=== PATIENT | male | born 1950 | race Caucasian/White ===

== ENCOUNTER 2024-12-31 18:55 | Inpatient (IN) | payer BC, OTHER ==
[~2024-12-31] VITALS: Ht 185.4 cm; Wt 118.8 kg
--- NOTE | 2024-12-31 19:17 | ECG ---
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
[2024-12-31 19:26] LABS: Nucleated Red Blood Cells % 0.1 %
[2024-12-31 19:27] LABS: Hemoglobin 19.2 g/dL (13.5-17.5); Mean Corpuscular Hemoglobin 28.7 pg (28.0-32.0); Mean Corpuscular Volume 86.1 fL (80.0-100.0)
[2024-12-31 19:29] LABS: Chloride 107 mmol/L (98-107); Potassium 4.5 mmol/L (3.5-5.1); Sodium 142 mmol/L (136-145)
[2024-12-31 19:30] LABS: Anion Gap 10 (5-15); Calcium 9.2 mg/dL (8.7-10.4); Carbon Dioxide 25 mmol/L (20-31)
[2024-12-31 19:33] LABS: Hematocrit 57.7 % (41.0-53.0)
[2024-12-31 19:35] LABS: BUN/Creatinine Ratio 13.4 (10.0-20.0); Blood Urea Nitrogen 20 mg/dL (9-23)
[2024-12-31 19:36] LABS: Glucose 112 mg/dL (74-106)
[2024-12-31 19:39] VITALS: PULSE 114; RESP 16; O2SAT 95
--- NOTE | 2024-12-31 19:45 | ECG ---
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
[2024-12-31] MEDS: SODIUM CHLORIDE 0.9% 500 ML IV ONE (19:59)
--- NOTE | 2024-12-31 20:34 | ED.PDOC ---
History of Present Illness HPI Comments [age] year old male is brought in by ambulance from private residence for chief complaint of shortness a breath status post AICD discharge. Patient endorses on his AICD going off, suddenly and unprovoked, and shocking him 3 times and developing shortness of breath soon afterwards, while hanging out at a friend's place. Significant history for AFib, CHF, CVA, cervical radiculopathy, and AICD placement. No prior history of his device going off in the past. No further pertinent history reported. Patient denies having any chest pain, nausea, vomiting, fever, chills, further associated symptoms. Per EMS report, patient was noted to have a heart rate between the 150-180 range; blood pressure and perforation were reported to have been fine. REVIEW OF SYSTEMS: General: No fever, no chills, or fatigue HEENT: No sore throat, no earache, no congestion, no neck pain. Cardiac: No chest pain. No palpitations. Lungs: Shortness of breath, no cough. GI: No nausea, no vomiting, no diarrhea, no constipation, no abdominal pain : No dysuria, frequency, or urgency. No hematuria. Musculoskeletal: No joint pain , no joint swelling, no extremity edema. Skin: No rash, no itching. Neuro: No headache, no dizziness, no weakness PHYSICAL EXAM: General: Awake, alert and oriented. No acute distress. Skin: Skin in warm, dry and intact. Appropriate color for ethnicity. HEENT: The head is normocephalic and atraumatic. Conjunctivae are clear without exudates or hemorrhage. Sclera is non-icteric. EOM are intact. No signs of nystagmus. Eyelids are normal in appearance without swelling or lesions. Oral mucosa is pink and moist Neck: The neck is supple with normal range of motion. No JVD. Cardiac: Rapid heart rate; irregularly, irregular rhythm. No murmurs, gallops, or rubs are auscultated. Respiratory: No signs of respiratory distress. Lung sounds are clear in all lobes bilaterally without rales, rhonchi, or wheezes. Abdominal: Abdomen is soft, non-tender without distention, guarding or rigidity. Bowel sounds are present and normoactive in all four quadrants. Extremities: Upper and lower extremities are atraumatic in appearance without deformity or edema. Neurological: The patient is awake, alert and oriented to person, place, and time with normal speech. Speech is clear. There is no facial asymmetry. Psychiatric: Appropriate mood and affect. Good judgement and insight. Chief Complaint: Chest Pain Time Seen by MD: 19:00 Primary Care Provider: JUANITA Curry Notes: Nurses Notes, [place]t [place]ime Drawer Notes, Medications, Allergies Allergies: Coded Allergies: NO KNOWN ALLERGIES (Unverified , 11/27/13) Information Source: Patient, Emergency Med Personnel Mode of Arrival: Ambulatory Severity: Moderate Timing: Hours Duration: Since onset Prehospital treatment: 12 Lead EKG, Audit Tech Past Medical History PAST MEDICAL HISTORY: AFIB, CHF, CVA (Chronic lacunar CVA), Denies Past Medical History (Other): Cervical radiculopathy Surgical History (Other): AICD placement Right shoulder surgery Family History Family History: Unobtainable Social History Smoker: Non-Smoker Alcohol: Denies ETOH Use Drugs: Denies Drug Use Lives In: Home Was a procedure done? Was a procedure done?: No EKG EKG #1: Pulse Rate (adult): 151 [place]: Normal Cardiac Rhythm: Afib Block: None Hypertrophy: None ST: Normal Comments No STEMI EKG #2: Pulse Rate (adult): 101 [place]: Normal Cardiac Rhythm: Afib Block: None Hypertrophy: None ST: Normal Comments No STEMI Differential Dx Considerations may include: Differential diagnoses considered includebut arenot limited to acute Bro nchitis, Asthma, COPD, Pneumothorax, PE, CHF, Pulmonary HTN, Anemia, CO Poisoning, Methemoglobinemia, Hyperventilation, Metabolic Acidosis, Pulmonary Edema, Pneumonia, ACS, Pericardial Tamponade, Anxiety, arrhythmia, other X-Ray, Labs, Meds, VS Vital Signs Date Time Temp Pulse Resp B/P (MAP) Pulse Ox O2 Delivery O2 Flow Rate FiO2 12/31/24 21:00 98 21 129/84 (99) 95 12/31/24 20:46 101 12/31/24 20:00 109 17 109/68 (82) 95 12/31/24 19:44 101 12/31/24 19:42 95 Nasal Cannula* 2 28 12/31/24 19:39 114 16 95 Nasal Cannula* 2 28 12/31/24 19:37 98.5 114 17 121/61 (81) 94 98.5 12/31/24 18:58 151 12/31/24 18:55 98.0 161 24 128/76 98 98.0 Lab Test 12/31/24 20:13 12/31/24 19:08 Range/Units Troponin I High Sensitivity 3163 *H 652 *H </=54 ng/L White Blood Count 11.6 H 4.4-10.8 10^3/uL Red Blood Count 6.70 H 4.5-5.90 10^6/uL Hemoglobin 19.2 H 13.5-17.5 g/dL Hematocrit 57.7 H 41.0-53.0 % Mean Corpuscular Volume 86.1 80.0-100.0 fL Mean Corpuscular Hemoglobin 28.7 28.0-32.0 pg Mean Corpuscular Hemoglobin Concent 33.3 32.0-36.0 g/dL Red Cell Distribution Width 17.8 H 11.8-14.3 % Platelet Count 200 140-450 10^3/uL Mean Platelet Volume 9.7 6.9-10.8 fL Neutrophils (%) (Auto) 73.0 37.0-80.0 % Lymphocytes (%) (Auto) 16.9 10.0-50.0 % Monocytes (%) (Auto) 8.3 0.0-12.0 % Eosinophils (%) (Auto) 1.0 0.0-7.0 % Basophils (%) (Auto) 0.8 0.0-2.0 % Neutrophils # (Auto) 8.4 1.6-8.6 10 ^3/uL Lymphocytes # (Auto) 2.0 0.4-5.4 10 ^3/uL Monocytes # (Auto) 1.0 0-1.3 10 ^3/uL Eosinophils # (Auto) 0.1 0-0.8 10 ^3/uL Basophils # (Auto) 0.1 0-0.2 10 ^3/uL Nucleated Red Blood Cells 0.1 % Sodium Level 142 136-145 mmol/L Potassium Level 4.5 3.5-5.1 mmol/L Chloride Level 107 98-107 mmol/L Carbon Dioxide Level 25 20-31 mmol/L Anion Gap 10 5-15 Blood Urea Nitrogen 20 9-23 mg/dL Creatinine 1.49 H 0.700-1.30 mg/dL Glomerular Filtration Rate Calc 49 >90 mL/min BUN/Creatinine Ratio 13.4 10.0-20.0 Serum Glucose 112 H 74-106 mg/dL Calcium Level 9.2 8.7-10.4 mg/dL B-Type Natriuretic Peptide 572.86 0-100 pg/mL Thyroid Stimulating Hormone (TSH) 2.83 0.55-4.78 uIU/mL Current Medications Medications (Trade) Dose Ordered Sig/Darius Route Start Time Stop Time Status Last Admin Sodium Chloride 500 ml @ 500 mls/hr Q1H ONCE IV 12/31/24 19:00 12/31/24 19:59 DC 12/31/24 19:59 Aspirin 162 mg ONCE ONCE PO 12/31/24 21:30 12/31/24 21:44 DC 12/31/24 22:12 Time of 1ST Reevaluation: 19:30 Reevaluation 1ST: Unchanged Patient Education/Counseling: Other (Need for admission) Family Education/Counseling: No Family Present SEPSIS Sepsis Screen Date sepsis recognized/suspect: Dec 31, 2024 Time Sepsis recognized/suspect: 1940 Recent Procedure: No On Antibiotic Therapy: No Respiratory Rate >20: No Heart Rate >90: No Temp<36 C (96.8 F) or >38.3 C: No SBP <90 or MAP <65 mmHG: No New Acute Mental Status Change: No Is the patient on CPAP, BIPAP,: No Physician Orders Chest Xray 1 View (12/31/24 19:00) Vital Signs Q1HR (12/31/24 19:00) Electrocardigram (12/31/24 22:00) Titrate Oxygen (12/31/24 19:01) Oxygen (12/31/24 ) Continous Pulse Oximetry (12/31/24 19:01) Saline Lock (12/31/24 19:01) Audit Tech (12/31/24 ) Assess Pacemaker Function (12/31/24 20:18) * Cardiology Consult (12/31/24:29) Aspirin Tablet (01/01/25 10:00) Atorvastatin (Lipitor) (12/31/24 22:00) Platelet Monitoring (12/31/24 21:29) Heparin Per Standardized Proce (12/31/24 21:29) Discontinue All Im Injections (12/31/24 21:29) Stat Ekg For Chest Pain (12/31/24 21:29) Vital Signs Date Time Temp Pulse Resp B/P (MAP) Pulse Ox O2 Delivery O2 Flow Rate FiO2 12/31/24 21:00 98 21 129/84 (99) 95 12/31/24 20:46 101 12/31/24 20:00 109 17 109/68 (82) 95 12/31/24 19:44 101 12/31/24 19:42 95 Nasal Cannula* 2 28 12/31/24 19:39 114 16 95 Nasal Cannula* 2 28 12/31/24 19:37 98.5 114 17 121/61 (81) 94 98.5 12/31/24 18:58 151 12/31/24 18:55 98.0 161 24 128/76 98 98.0 Laboratory Tests Test 12/31/24 19:08 White Blood Count 11.6 10^3/uL (4.4-10.8) H Medications Medications Dose Ordered Sig/Darius Route Start Time Stop Time Status Last Admin Dose Admin Aspirin 162 mg ONCE ONCE PO 12/31/24 21:30 12/31/24 21:44 DC 12/31/24 22:12 Sodium Chloride 500 ml @ 500 mls/hr Q1H ONCE IV 12/31/24 19:00 12/31/24 19:59 DC 12/31/24 19:59 Departure 1 Departure Time of Disposition: 04:29 Impression: Primary Impression: NSTEMI (non-ST elevated myocardial infarction) Additional Impressions: Atrial fibrillation Defibrillator discharge Disposition: ADMITTED INPATIENT Condition: Stable Comments MDM: 74-year-old male presents to the emergency department with two episodes of defibrillator discharge Initial evaluation included thorough history, physical examination and appropriate diagnostic testing. Based on the clinical presentation and diagnostic findings, the patient appears to have atrial fibrillation with RVR, rate improved spontaneously. Increasing troponins NSTEMI versus myocardial injury from defibrillator discharge. Patient initiated on heparin bolus and drip given cardiac history. Given the complexity of the case and need for further management patient is being admitted to the hospitalist service for further monitoring, treatment and evaluation. Risks, benefits and alternatives of admission and proposed interventions were discussed with the patient. Patient is in agreement with the plan. Extensive evaluation was performed in attempt to identify or rule out: (See differential diagnosis section) The following tests were ordered, and results were reviewed by me and discussed with patient: (See diagnostic results section) The following test were independently interpreted by me: N/A I reviewed and agreed with the following test results read by other providers: Chest x-ray I reviewed the following notes from the pt's past medical encounters: November 27, 2013 and December 18, 2013 encounters for palpitations and acute CVA with left arm weakness, respectively. Additional information was gathered from interviewing the following independent historians: EMS personnel Discussion of management or test interpretation with external physician/other qualified health healthcare marketer: N/A Addressed an acute or chronic illness that poses a threat to life or bodily function: NSTEMI Decision regarding hospitalization or escalation of hospital level of care: Risk and benefits of admission for further treatment of patient's condition was considered. Due to patient's current clinical condition, high risk of decline and poor outcome if discharged and need for further inpatient management and monitoring, patient will be admitted to the hospital. Drug therapy requiring intensive monitoring for toxicity: N/A Parenteral controlled substances: N/A Decision regarding elective major surgery with identified patient or procedure risk factors: N/A Decision regarding emergency major surgery: N/A Decision not to resuscitate or to de-escalate care because of poor prognosis: N/A Diagnosis or treatment significantly limited by social determinants of health: N/A Critical Care Note Critical Care Time?: No Stability Stability form required: No Heart Score Heart Score: Heart Score Response (Comments) Value History Moderate Suspicious 1 EKG Repolarization Disturb 1 Age >65 2 Risk Factors >3 or Hx ASHD 2 Troponin >3 x's Normal limit 2 Total 8 I personally scribed for PAULO DALLAS MD ([email or web address]) on 12/31/24 at 20:34. Electronically submitted by Jamari Harrell ([email or web address]). I personally scribed for PAULO DALLAS MD ([email or web address]) on 12/31/24 at 20:46. Electronically submitted by Jamari Harrell ([email or web address]). PAULO DALLAS MD Dec 31, 2024 20:34
--- NOTE | 2024-12-31 21:22 | DVH ---
CHEST RADIOGRAPH Indication: cp Technique: Single frontal view of the chest was obtained Comparison: None FINDINGS: Lines and Tubes: Left chest pacer Lungs: No focal consolidation. Mild pulmonary vascular congestion. Pleura: No effusion. No pneumothorax. Cardiomediastinal contours: Mild cardiomegaly Bones: No acute osseous abnormality. IMPRESSION: 1. Mild pulmonary vascular congestion and mild cardiomegaly. No focal consolidation
--- NOTE | 2024-12-31 21:39 | DVHHP2 ---
History of Present Illness Reason for Visit: Shortness of breath History of Present Illness 74-year-old male presents for evaluation of shortness for breath. Patient reports feeling his AICD set off 3 times today. He states that subsequently he developed shortness for breath. Denies dizziness or chest pain. No other acute complaints reported. Past Medical History AFib, CHF, CVA Past Surgical History AICD Family History Noncontributory Smoke: No ALCOHOL: none Drugs: None Lives: with Family Review of Systems Review of Systems Review of systems are currently negative otherwise addressed in HPI. Allergies: Coded Allergies: NO KNOWN ALLERGIES (Unverified , 11/27/13) Medications Current Medications Medications Dose Ordered Sig/Darius Route Start Time Stop Time Status Last Admin Dose Admin Heparin Sodium/ Dextrose 250 ml @ 0 mls/hr Q0M IV 12/31/24 21:00 UNV Aspirin 162 mg DAILY PO 01/01/25 10:00 UNV Atorvastatin Calcium 20 mg HS PO 12/31/24 22:00 UNV Ondansetron HCl 4 mg Q4HP PRN IV 12/31/24 21:45 UNV Nitroglycerin 0.4 mg Q5MINP PRN SL 12/31/24 21:45 UNV Morphine Sulfate 2 mg Q30M PRN IV 12/31/24 21:45 UNV Exam Vital Signs Vital Signs Date Time Temp Pulse Resp B/P (MAP) Pulse Ox O2 Delivery O2 Flow Rate FiO2 12/31/24 20:46 101 12/31/24 20:00 17 109/68 (82) 95 12/31/24 19:42 Nasal Cannula* 2 28 12/31/24 19:37 98.5 98.5 Exam Gen: 74 year old male in mild distress Skin: Warm, dry, normal color and texture, no rash. HEENT: Normocephalic atraumatic, mucous membranes moist and pink. Neck: Cervical and supraclavicular nodes normal without enlargement, trachea is midline, thyroid gland is normal without masses. Pulmonary: Clear to auscultation and percussion bilaterally. Cardiac: Regular rate and rhythm. No murmur Abdomen: Soft, nontender, nondistended, bowel sounds present all 4 quadrants, no guarding, no rigidity, no organomegaly. Extremities: No cyanosis, clubbing, no edema Neuro: Cranial nerves II through XII grossly intact, normal affect and speech, no focal motor deficits. Labs/Xrays ORDERING PHYSICIAN: PAULO DALLAS MD PROCEDURE(s): CXR1 - CHEST XRAY 1 VIEW REASON: cp ORDER NUMBER(s): [id number], ACCESSION NUMBER(s): [id number] CHEST RADIOGRAPH Indication: cp Technique: Single frontal view of the chest was obtained Comparison: None FINDINGS: Lines and Tubes: Left chest pacer Lungs: No focal consolidation. Mild pulmonary vascular congestion. Pleura: No effusion. No pneumothorax. Cardiomediastinal contours: Mild cardiomegaly Bones: No acute osseous abnormality. IMPRESSION: 1. Mild pulmonary vascular congestion and mild cardiomegaly. No focal cons olidation Labs Test 12/31/24 20:13 12/31/24 19:08 Range/Units Troponin I High Sensitivity 3163 *H </=54 ng/L White Blood Count 11.6 H 4.4-10.8 10^3/uL Red Blood Count 6.70 H 4.5-5.90 10^6/uL Hemoglobin 19.2 H 13.5-17.5 g/dL Hematocrit 57.7 H 41.0-53.0 % Mean Corpuscular Volume 86.1 80.0-100.0 fL Mean Corpuscular Hemoglobin 28.7 28.0-32.0 pg Mean Corpuscular Hemoglobin Concent 33.3 32.0-36.0 g/dL Red Cell Distribution Width 17.8 H 11.8-14.3 % Platelet Count 200 140-450 10^3/uL Mean Platelet Volume 9.7 6.9-10.8 fL Neutrophils (%) (Auto) 73.0 37.0-80.0 % Lymphocytes (%) (Auto) 16.9 10.0-50.0 % Monocytes (%) (Auto) 8.3 0.0-12.0 % Eosinophils (%) (Auto) 1.0 0.0-7.0 % Basophils (%) (Auto) 0.8 0.0-2.0 % Neutrophils # (Auto) 8.4 1.6-8.6 10 ^3/uL Lymphocytes # (Auto) 2.0 0.4-5.4 10 ^3/uL Monocytes # (Auto) 1.0 0-1.3 10 ^3/uL Eosinophils # (Auto) 0.1 0-0.8 10 ^3/uL Basophils # (Auto) 0.1 0-0.2 10 ^3/uL Nucleated Red Blood Cells 0.1 % Sodium Level 142 136-145 mmol/L Potassium Level 4.5 3.5-5.1 mmol/L Chloride Level 107 98-107 mmol/L Carbon Dioxide Level 25 20-31 mmol/L Anion Gap 10 5-15 Blood Urea Nitrogen 20 9-23 mg/dL Creatinine 1.49 H 0.700-1.30 mg/dL Glomerular Filtration Rate Calc 49 >90 mL/min BUN/Creatinine Ratio 13.4 10.0-20.0 Serum Glucose 112 H 74-106 mg/dL Calcium Level 9.2 8.7-10.4 mg/dL B-Type Natriuretic Peptide 572.86 0-100 pg/mL SEPSIS Sepsis Screen Date sepsis recognized/suspect: Dec 31, 2024 Time Sepsis recognized/suspect: 1940 Recent Procedure: No On Antibiotic Therapy: No Respiratory Rate >20: No Heart Rate >90: No Temp<36 C (96.8 F) or >38.3 C: No SBP <90 or MAP <65 mmHG: No New Acute Mental Status Change: No Is the patient on CPAP, BIPAP,: No Physician Orders Chest Xray 1 View (12/31/24 19:00) Vital Signs Q1HR (12/31/24 19:00) Electrocardigram (12/31/24 22:00) Troponin-I Hs (12/31/24 22:00) Titrate Oxygen (12/31/24 19:01) Oxygen (12/31/24 ) Continous Pulse Oximetry (12/31/24 19:01) Saline Lock (12/31/24 19:01) Climbing Guide (12/31/24 ) Assess Pacemaker Function (12/31/24 20:18) Prothrombin Time W/ Inr (12/31/24 20:59) Heparin Sodium (Porcine) (12/31/24 21:00) Heparin Drip/D5w 100units/Ml (12/31/24 21:00) Thyroid Stimulating Hormone (12/31/24 21:29) * Cardiology Consult (12/31/24 21:29) Aspirin Tablet (01/01/25 10:00) Aspirin Tablet (12/31/24 21:30) Atorvastatin (Lipitor) (12/31/24 22:00) Platelet Monitoring (12/31/24:) Heparin Per Standardized Proce (12/31/24:29) Discontinue All Im Injections (12/31/24:29) Stat Ekg For Chest Pain (12/31/24:) Admit (12/31/24:) Ondansetron Hcl (Zofran) (12/31/24 21:45) Complete Blood Count (01/01/25 04:00) Comprehensive Metabolic Panel (01/01/25 04:00) Echo 2d Mode Cardiac Dop (12/31/24:) Condition: Fair (12/31/24:) Bedrest With Bathroom Privileg (12/31/24:) Nitroglycerin Sublingual (Ntrostat Subli (12/31/24 21:45) Morphine Sulfate Injection (12/31/24 21:45) Notify Of Changes From Base (12/31/24:) Clerical Administrator For 24 Hours (12/31/24:) Emergency Dysrhythmia Protocol (12/31/24:) Rhythm Strips Once Every Shift (12/31/24:) Oxygen By Nasal Cannula (12/31/24:) Npo Except For Medications (12/31/24:) Npo (Nothing By Mouth) Diet (12/31/24 Breakfast) Vital Signs Date Time Temp Pulse Resp B/P (MAP) Pulse Ox O2 Delivery O2 Flow Rate FiO2 12/31/24 20:46 101 12/31/24 20:00 109 17 109/68 (82) 95 12/31/24 19:44 101 12/31/24 19:42 95 Nasal Cannula* 2 28 12/31/24 19:39 114 16 95 Nasal Cannula* 2 28 12/31/24 19:37 98.5 114 17 121/61 (81) 94 98.5 12/31/24 18:58 151 12/31/24 18:55 98.0 161 24 128/76 98 98.0 Laboratory Tests Test 12/31/24 19:08 White Blood Count 11.6 10^3/uL (4.4-10.8) H Medications Medications Dose Ordered Sig/Darius Route Start Time Stop Time Status Last Admin Dose Admin Sodium Chloride 500 ml @ 500 mls/hr Q1H ONCE IV 12/31/24 19:00 12/31/24 19:59 DC 12/31/24 19:59 500 MLS/HR Assessment/Plan Assessment/Plan Assessment NSTEMI AFib with RVR Acute kidney injury Plan Admit the patient to telemetry to the hospitalist Continue heparin drip NPO except medications Cardiology consult Continue treatment per orders. Plan discussed with: Patient My Orders Orders - DASHAWN MAINCNP Procedure Category Date Status Time Thyroid Stimulating LAB 12/31/24 Logged Hormone 21:29 * Cardiology Consult CONS 12/31/24 Transmitted 21:29 Aspirin Tablet PHA 01/01/25 Logged 10:00 Aspirin Tablet PHA 12/31/24 Logged 21:30 Atorvastatin (Lipitor) PHA 12/31/24 Logged 22:00 Platelet Monitoring MABEL 12/31/24 In Process 21:29 Heparin Per [facility] 12/31/24 In Process Standardized Proce 21:29 Discontinue All Im MABEL 12/31/24 In Process Injections 21:29 Stat Ekg For Chest [facility] 12/31/24 In Process Pain 21:29 Admit ADMIT 12/31/24 Transmitted 21:31 Ondansetron Hcl PHA 12/31/24 Logged (Zofran) 21:45 Complete Blood Count LAB 01/01/25 Verified 04:00 Comprehensive LAB 01/01/25 Verified Metabolic Panel 04:00 Echo 2d Mode Cardiac US 12/31/24 Transmitted DOP 21:31 Condition: Fair [facility] 12/31/24 In Process 21:31 Bedrest With Bathroom MABEL 12/31/24 In Process Privileg 21:31 Nitroglycerin PHA 12/31/24 Logged Sublingual (Ntrostat 21:45 Morphine Sulfate PHA 12/31/24 Logged Injection 21:45 Notify Of Changes [facility] 12/31/24 In Process From Base 21:31 Clerical Administrator For [facility] 12/31/24 In Process 24 Hours 21:31 Emergency Dysrhythmia MABEL 12/31/24 In Process Protocol 21:31 Rhythm Strips Once [facility] 12/31/24 In Process Every Shift 21:31 Oxygen By Nasal RT 12/31/24 Transmitted Cannula 21:31 Npo Except For MABEL 12/31/24 In Process Medications 21:31 Npo (Nothing By DIET 12/31/24 Transmitted Mouth) Diet Breakfast Date of Service: Dec 31, 2024 Billing Provider: DASHAWN MAIN Common Visit Codes: [id number] INP/OBS CARE (HIGH) DASHWAN MAIN Dec 31, 2024 21:38
[2024-12-31] MEDS ORDERED: MORPHINE SULFATE INJ 2 MG/ml SYRG IV PRN (21:45)
[2024-12-31] MEDS ORDERED: NITROGLYCERIN 0.4 MG SL TAB SL PRN (21:45)
[2024-12-31] MEDS ORDERED: ONDANSETRON HCL 4 MG/2 ML VIAL IV PRN (21:45)
[2024-12-31] MEDS: ATORVASTATIN 20 MG TAB PO SCH (22:13)
[2024-12-31 23:10] VITALS: BP 134/92; PULSE 114; PULSE 88; RESP 19; TEMP 98.2; O2SAT 96
[2024-12-31 23:30] LABS: INR 1.11 (0.9-1.15); Partial Thromboplastin Time 30.2 SEC (24.5-34.5); Prothrombin Time 11.6 sec (9.3-11.8)
[2025-01-01] VITALS (16 sets, daily range): BP systolic 123–153; BP diastolic 74–116; PULSE 66–94; RESP 13–21; TEMP 98–98.8; O2SAT 91–98
[2025-01-01] MEDS: HEPARIN DRIP/D5W 100UNITS/ML 250 ML IV SCH (00:37)
[2025-01-01] MEDS: HEPARIN SODIUM (PORCINE) 5000 UNITS/ML 1ML VIAL IV ONE ×2 (00:38→00:54)
[2025-01-01 06:32] LABS: Hematocrit 55.6 % (41.0-53.0); Hemoglobin 19.0 g/dL (13.5-17.5); Mean Corpuscular Hemoglobin 29.3 pg (28.0-32.0); Mean Corpuscular Volume 85.8 fL (80.0-100.0); Nucleated Red Blood Cells % 0.2 %
[2025-01-01 06:40] LABS: INR 1.12 (0.9-1.15); Partial Thromboplastin Time 51.5 SEC (24.5-34.5); Prothrombin Time 11.7 sec (9.3-11.8)
[2025-01-01 06:44] LABS: Alanine Aminotransferase 20 U/L (7-40); Albumin 4.4 g/dL (3.2-4.8); Alkaline Phosphatase 56 U/L (46-116); Anion Gap 9 (5-15); BUN/Creatinine Ratio 10.6 (10.0-20.0); Blood Urea Nitrogen 14 mg/dL (9-23); Calcium 9.1 mg/dL (8.7-10.4); Carbon Dioxide 28 mmol/L (20-31); Glucose 104 mg/dL (74-106); Potassium 4.4 mmol/L (3.5-5.1); Sodium 144 mmol/L (136-145); Total Protein 6.5 g/dL (5.7-8.2)
[2025-01-01 06:45] LABS: Bilirubin, Total 1.4 mg/dL (0.2-1.0); Chloride 107 mmol/L (98-107)
--- NOTE | 2025-01-01 08:00 | ECG ---
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
[2025-01-01] MEDS ORDERED: SACU1TAB PO (09:21)
[2025-01-01] MEDS ORDERED: FURO1TAB31 PO (09:21)
[2025-01-01] MEDS ORDERED: APIX5TAB PO (09:21)
[2025-01-01] MEDS ORDERED: SPIR25TA8 PO (09:21)
[2025-01-01] MEDS ORDERED: METO-289 PO (09:21)
--- NOTE | 2025-01-01 12:39 | DVHINCON2 ---
Date Seen: Jan 01, 2025 Referring Physician KOURTNEY Delvalle Reason for Consultation NSTEMI History of Present Illness This is a 74-year-old man who presented to the emergency room via EMS with a chief complaint of ICD discharge x3. The patient reports he had an uneventful day yesterday without any symptoms when he was suddenly shocked x3 times by his AICD which prompting him to call 911. Upon arrival to the emergency room he underwent multiple 12 lead electrocardiogram revealing an atrial fibrillation rhythm with rapid ventricular rate up to the 150s bpm and associated T-wave inversion to anterior leads. Serial troponin levels have trended up to the 3,000 ng/L. Denies any cardiac symptoms. Follows up in the outpatient setting with EP Dr. Mirza with latest appointment completed last month. The patient denies undergoing a cardiac catheterization and coronary angiogram in the past. Significant medical history includes congestive heart failure with decreased LV function, unspecified atrial fibrillation on Eliquis therapy, [employer] single lead ICD implanted on 24-Oct-2024, hypertension, dyslipidemia, cervical radiculopathy, and obesity. Past Medical History Past medical history reviewed. No other significant than mentioned above. Past Surgical History Single lead ICD implantation ([employer]), Family History: Cancer G8 MOTHER Family history: Cardiovascular disease G8 FATHER Family History Family history reviewed. Not significant for cardiovascular disease. Social History Denies the use of illicit drugs, alcohol, or tobacco use. Allergies: Coded Allergies: NO KNOWN ALLERGIES (Unverified , 11/27/13) Home Meds Reported Medications Spironolactone (Spironolactone) 25 Mg Tab, 12.5 MG PO DAILY, TAB 01/01/25 Furosemide (Lasix) 40 Mg Tab, 40 MG PO TUTHSA, TAB 01/01/25 Metoprolol Succinate (Metoprolol Succinate Er) 50 Mg Tab, 1 TAB PO BID, #30 TAB 5 Refills 01/01/25 Sacubitril-Valsartan (Entresto 24-26 mg) 1 Tab Tab, 1 TAB PO DAILY, TAB 01/01/25 Apixaban Base (ELIQUIS) 5 Mg Tab, 5 MG PO DAILY, TAB 01/01/25 Home Meds Home medications reviewed. Current Medications Current Medications Medications (Trade) Dose Ordered Sig/Darius Route PRN Reason Start Time Stop Time Status Last Admin Heparin Sodium/ Dextrose 250 ml @ 10 mls/hr Q24H IV 01/02/25 00:15 01/01/25 00:26 DC Aspirin 162 mg DAILY PO 01/01/25 10:00 01/01/25 10:33 Atorvastatin Calcium (Lipitor) 20 mg HS PO 12/31/24 22:00 12/31/24 22:13 Ondansetron HCl (Zofran) 4 mg Q4HP PRN IV NAUSEA / VOMITING 12/31/24 21:45 Nitroglycerin (Ntrostat Sublingual) 0.4 mg Q5MINP PRN SL FOR CHEST PAIN 12/31/24 21:45 Morphine Sulfate 2 mg Q30M PRN IV FOR CHEST PAIN 12/31/24 21:45 Heparin Sodium/ Dextrose 250 ml @ 10 mls/hr Q24H IV 01/01/25 00:15 01/01/25 00:37 Review of Systems Constitutional: No symptom reported Ears, Nose, & Throat: No symptom reported Eyes: No symptom reported Neurological: No symptoms reported Pulmonary/Respiratory: No symptom reported Cardiovascular: ICD shock x3 Gastrointestinal: No symptom reported Genitourinary: No symptom reported Musculoskeletal: No symptom reported Skin: No symptom reported Psychiatric: No symptom reported Endocrine: No symptom reported Hemotologic/Lymphatic: No symptom reported Vital Signs Vital Signs Date Time Temp Pulse Resp B/P (MAP) Pulse Ox O2 Delivery O2 Flow Rate FiO2 01/01/25 11:06 91 17 98 Nasal Cannula* 3 32 01/01/25 11:04 98.4 147/100 (116) 98.4 Physical Exam General Appearance: Cooperative. Well developed. Obese. In no acute distress Head Exam: Normal inspection Neck Exam: Normal inspection. Non-tender. Normal alignment Pulmonary/Respiratory: Chest non-tender. Crackles to bilateral breath sounds Cardiovascular/Chest: Irregularly irregular rate and rhythm. AFib with intermittent RVR. No murmurs. No JVD. Peripheral Pulses: 2+ Radial (R). 2+ Radial (L). 2+ Pedal (R). 2+ Pedal (L) Abdominal Exam: Normal bowel sounds. Soft. Nontender. No hepatospenomegaly. No masses Ankle Exam: Negative ankle edema Lower extremities: Negative lower extremity edema Neuro/Mental Status: A&O x4. Coherent Thoughts/Psych: Normal thought pattern. Appropriate mood and affect. Good judgement and insight Appearance: In no acute distress Skin Exam: Normal inspection. Normal color. Warm. Dry Labs/Diagnostic Data Labs Test 01/01/25 06:06 12/31/24 22:00 12/31/24 19:08 Range/Units White Blood Count 10.1 4.4-10.8 10^3/uL Red Blood Count 6.48 H 4.5-5.90 10^6/uL Hemoglobin 19.0 H 13.5-17.5 g/dL Hematocrit 55.6 H 41.0-53.0 % Mean Corpuscular Volume 85.8 80.0-100.0 fL Mean Corpuscular Hemoglobin 29.3 28.0-32.0 pg Mean Corpuscular Hemoglobin Concent 34.1 32.0-36.0 g/dL Red Cell Distribution Width 17.9 H 11.8-14.3 % Platelet Count 160 140-450 10^3/uL Mean Platelet Volume 9.9 6.9-10.8 fL Neutrophils (%) (Auto) 71.1 37.0-80.0 % Lymphocytes (%) (Auto) 18.8 10.0-50.0 % Monocytes (%) (Auto) 8.3 0.0-12.0 % Eosinophils (%) (Auto) 1.1 0.0-7.0 % Basophils (%) (Auto) 0.7 0.0-2.0 % Neutrophils # (Auto) 7.2 1.6-8.6 10 ^3/uL Lymphocytes # (Auto) 1.9 0.4-5.4 10 ^3/uL Monocytes # (Auto) 0.8 0-1.3 10 ^3/uL Eosinophils # (Auto) 0.1 0-0.8 10 ^3/uL Basophils # (Auto) 0.1 0-0.2 10 ^3/uL Nucleated Red Blood Cells 0.2 % Prothrombin Time 11.7 9.3-11.8 sec Prothrombin Time INR 1.12 0.9-1.15 Activated Partial Thromboplast Time 51.5 H 24.5-34.5 SEC Sodium Level 144 136-145 mmol/L Potassium Level 4.4 3.5-5.1 mmol/L Chloride Level 107 98-107 mmol/L Carbon Dioxide Level 28 20-31 mmol/L Anion Gap 9 5-15 Blood Urea Nitrogen 14 9-23 mg/dL Creatinine 1.32 H 0.700-1.30 mg/dL Glomerular Filtration Rate Calc 57 >90 mL/min BUN/Creatinine Ratio 10.6 10.0-20.0 Serum Glucose 104 74-106 mg/dL Calcium Level 9.1 8.7-10.4 mg/dL Total Bilirubin 1.4 H 0.2-1.0 mg/dL Aspartate Amino Transferase (AST) 38 13-40 U/L Alanine Aminotransferase (ALT) 20 7-40 U/L Alkaline Phosphatase 56 46-116 U/L Total Protein 6.5 5.7-8.2 g/dL Albumin 4.4 3.2-4.8 g/dL Troponin I High Sensitivity 3178 *H </=54 ng/L B-Type Natriuretic Peptide 572.86 0-100 pg/mL Thyroid Stimulating Hormone (TSH) 2.83 0.55-4.78 uIU/mL Assessment Acute on chronic decompensated HFrEF, NYHA Class III Likely persistent atrial fibrillation with rapid ventricular rate, stage III, on Eliquis therapy Implantable cardioverter-defibrillator shocks x 3 (Nitronex, 24-Oct-2024) Non ST-elevation myocardial infarction rule out coronary artery disease Hypertension Dyslipidemia Obesity Plan/Recommendation (Dr. Dominguez) Case discussed with Dr. Dominguez. Scheduled for urgent cardiac catheterization and coronary angiogram at first available. All risks and benefits of the procedure were discussed with the patient who agrees to proceed with intervention. All questions answered. In the meantime, discontinue heparin drip and reestablish Eliquis therapy postprocedure ([id number] Score 3 points, HAS-BLED Score 2 points). Continue rate control with metoprolol XL, likely persistent A-fib. Initiate preload and afterload reduction, strict I&Os, fluid restriction, and daily weight. ICD interrogation completed revealing atrial fibrillation with rapid ventricular rate events status post shocks x3 on 31-Dec-2024. Thank you for allowing us to participate in this patient's care. Please call if you have any questions or concerns. Critical care time: 45 min. This medical document was created using an electronic medical record system with voice recognition software and computerized dictation system. Although this document has been carefully reviewed, there might still be some phonetic and typographical errors. Occasional wrong-word or ``sound-alike substitutions may have occurred due to the inherent limitations of voice recognition software. These areas are purely typographical due to imperfections of the software programs and do not reflect any compromise in the patient's medical care. Please read the chart carefully and recognize, using context, where these substitutions have occurred. Plan discussed with: Patient, Other NYHA Physical activity limitations: Class3(Marked) ordinary (activity causes symtoms) Date of Service: Jan 01, 2025 Billing Provider: SIOMARA CODY Cardiology Common Codes: [id number] CARE 30-74 MIN SIOMARA CODY Jan 01, 2025 12:39
[2025-01-01 13:08] LABS: Magnesium 2.2 mg/dL (1.6-2.6); Triglycerides 81.0 mg/dL (< 150)
[2025-01-01 13:10] LABS: Cholesterol 178.0 mg/dL (< 200); HDL Cholesterol 43.0 mg/dL (40-59)
[2025-01-01] MEDS: METOPROLOL TARTRATE 1MG/1ML-5ML VIAL IV ONE ×3 (13:28→14:55)
[2025-01-01] MEDS: AMIODARONE 360mg/200mL PREMIX 200 ML IV ONE ×2 (13:29→13:45)
[2025-01-01] MEDS: AMIODARONE BOLUS KIT 100 ML IV ONE (13:40)
[2025-01-01] MEDS: IODIXANOL 320MG/ML 100ML BTL IV ONE (15:01)
[2025-01-01] MEDS: VERAPAMIL 2.5MG/ML INJ 2ML VIAL IV ONE (15:11)
[2025-01-01] MEDS: fentaNYL CITRATE 100 MCG/2 ML VL ONE (15:11)
[2025-01-01] MEDS: MIDAZOLAM HCL 2MG/2ML 2ml VIAL (1mg/ml) ONE (15:11)
[2025-01-01] MEDS: HEPARIN SODIUM (PORCINE) 5000 UNITS/ML 1ML VIAL ONE (15:11)
[2025-01-01] MEDS: LIDOCAINE 2%HCL (LOCAL ANESTH.) INJ 20ML MDV ONE (15:12)
--- NOTE | 2025-01-01 15:50 | DVHPNRES ---
Progress Note Date Seen: Jan 01, 2025 Resident Creating Document: MELYSSA VILLALPANDO RESIDENT Medical Necessity Reason Pt with a Central, PICC or Fol: No Subjective Review of Systems 74-year-old male with past medical history of AICD device placed in October 31 2024, came in yesterday as he felt a shock wave from his AICD device twice in 15 minutes. Patient denies any dizziness, chest pain, nausea, vomiting, shortness of breaths or any other symptoms. on inquiry patient reports he has CHF and thinks the ejection fraction is about 30% which was diagnosed about 1 year and 8 months ago. PMH: AFib, CHF, CVA PSH: AICD device, rotator muscle surgery Family history: Father in his 80s due to cardiovascular cause, had pacemaker Social history: Patient lives with family. 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 Allergies: None Home medications: Eliquis, metoprolol, spironolactone, Lasix, potassium supplements ROS: 01/01/2025: Patient was seen and examined by me at the bedside. Overnight events were reviewed. Patient has no new active complaints. An echocardiogram is ordered, pending. We have kept the patient on telemetry, morphine, nitroglycerin, Zofran, atorvastatin given. Cardiac consult suggested: Scheduled for urgent cardiac catheterization and coronary angiogram at first available. meantime, discontinue heparin drip and reestablish Eliquis therapy postprocedure ([id number] Score 3 points, HAS-BLED Score 2 points). Continue rate control with metoprolol XL, likely persistent A-fib. Initiate preload and afterload reduction, strict I&Os, fluid restriction, and daily weight. ICD interrogation completed revealing atrial fibrillation with rapid ventricular rate events status post shocks x3 on 31-Dec-2024. Objective vital signs Vital Sign Date Time Temp Pulse Resp B/P (MAP) Pulse Ox O2 Delivery O2 Flow Rate FiO2 01/01/25 14:55 94 157/104 01/01/25 13:00 98.5 17 98 98.5 01/01/25 11:06 Nasal Cannula* 3 32 Total Intake and Output 12/31/24 12/31/24 01/01/25 15:00 23:00 07:00 Intake Total 60 ml Balance 60 ml medications Current Medications Medications Dose Ordered Sig/Darius Route Start Time Stop Time Status Last Admin Dose Admin Aspirin 162 mg DAILY PO 01/01/25 10:00 01/01/25 10:33 162 MG Atorvastatin Calcium 20 mg HS PO 12/31/24 22:00 12/31/24 22:13 20 MG Ondansetron HCl 4 mg Q4HP PRN IV 12/31/24 21:45 Nitroglycerin 0.4 mg Q5MINP PRN SL 12/31/24 21:45 Morphine Sulfate 2 mg Q30M PRN IV 12/31/24 21:45 Metoprolol Succinate 50 mg DAILY PO 01/02/25 10:00 Sacubitril/ Valsartan 1 tab BID PO 01/01/25 22:00 Spironolactone 12.5 mg DAILY PO 01/02/25 10:00 Empaglifozin 10 mg DAILY PO 01/02/25 10:00 Furosemide 40 mg BIDD IV 01/01/25 18:00 Examination Pt is lying on bed General Appearance: Alert, Oriented X3, Cooperative, Not in acute distress HEENT: Atraumatic, Mucous membranes moist/pink Respiratory: Clear to auscultation, Normal air movement, No added sounds Cardiovascular: Regular rate, Normal S1, Normal S2, No murmurs Abdominal: Active bowel sounds, Soft, no distention, no tenderness Extremities: No edema, Normal pulses, No tenderness/swelling Skin: No Significant rash, except past surgical scars Neuro: Normal speech, sensorimotor deficits none Psych/Mental Status: Mental status NL, Mood NL Nurse was there as technology applications consultant during examination laboratory and microbiology Laboratory Tests 01/01/25 06:06 Test 01/01/25 06:06 Range/Units Serum Glucose 104 74-106 mg/dL Labs and/or images reviewed: Labs reviewed by me, Image(s) reviewed by me Problem List/Assessment/Plan Problem List/Assessment/Plan #NSTEMI type 2 #acute chest pain secondary to AICD firing X 3 #afib with RVR, now rate controlled, CHADVAS-6, HASBLED-2 on elliquis #chf, likely systolic, NYHA 2, echo pending -Troponin 3178>3163>652 -on telemetry -echo, pending -morphine to mg to 30 PRN -nitroglycerin 0.4 mg Q 5 min PRN -aspirin 162 mg daily -metoprolol 50 mg, spironolactone 12.5 mg, empagliflozin 10 mg, Entresto 1 tab -Zofran 4 mg q.4 PRN -heparin -Atorvastatin 40 mg daily -furosemide 40 mg b.i.d. -Cardiology consult suggested: Scheduled for urgent cardiac catheterization and coronary angiogram at first available. All risks and benefits of the procedure were discussed with the patient who agrees to proceed with intervention. All questions answered. In the meantime, discontinue heparin drip and reestablish Eliquis therapy postprocedure ([id number] Score 3 points, HAS-BLED Score 2 points). Continue rate control with metoprolol XL, likely persistent A-fib. Initiate preload and afterload reduction, strict I&Os, fluid restriction, and daily weight. ICD interrogation completed revealing atrial fibrillation with rapid ventricular rate events status post shocks x3 on 31-Dec-2024. #LEYLA due to VMN -Creatinine 1.32 -Monitor #hyperbilirubinemia -monitor labs Diet: cardiac diet Goals of care discussed with the patient for more than 27 minutes: Full code status Case discussed with , patient and nurse. Plan discussed with: Patient, Other (rn) My Orders My Orders Orders - MELYSSA VILLALPANDO Procedure Category Date Status Time Drug Screen LAB 01/01/25 Logged 09:15 Urinalysis LAB 01/01/25 Logged 09:16 Urine Sodium LAB 01/01/25 Logged 09:16 Urine Creatinine LAB 01/01/25 Logged 09:16 Urine LAB 01/01/25 Logged Protein/Creatinine Date of Service: Jan 01, 2025 Billing Provider: HAILE MAYER MD Common Visit Codes: [id number] INP/OBS CARE(HIGH) MELYSSA VILLALPANDO Jan 01, 2025 15:50 HAILE MAYER MD Jan 02, 2025 18:00
[2025-01-01] MEDS: DIGOXIN (250MCG/ML) 2 ML AMPULE IV ONE (16:19)
--- NOTE | 2025-01-01 18:32 | DVHSR ---
APPROVED REPORT EXAM: Two-dimensional and M-mode echocardiogram with Doppler and color Doppler. Blood Pressure: 144/105 mmHg Surgery/Intervention Pacemaker: RISK FACTORS Obesity: Height: 6'1", Weight: 270 DIMENSIONS LVDd5.9 (3.8-5.7cm)LA (2D)5.2 (1.9-4.0cm)Aortic Root4.1 (2.0-3.7cm) LVDs5.2 (2.5-4.0cm)LA (MM) (1.9-4.0cm)Aortic Cusp Exc2.1 (1.5-2.0cm) EF (%) 26.0 (55-70%)Rt. Atrium5.1 (1.9-4.0cm)Asc. Aorta cm IVSd1.2 (0.7-1.1cm)RV (D) (1.8-2.4cm) PWd1.2 (0.7-1.1cm) Mitral Valve MitralMitral Stenosis E wave0.77m/sMV Mean GR.mmHg E/A ratio0.02D MVAcm2 Aortic Valve Aortic ValveAortic Stenosis V10.70m/Hillary Mean GR.2mmHg V20.93m/Hillary Peak GR.3mmHg LVOT Diameter2.1 (1.8-2.4cm)Doppler AVA2.61cm2 Other Information Technically limited study due to body habitus. Conclusion lvef 30% dilated LV severe global dysfunction limited study given body habitus mild LVH RV pacing lead present left atrium enlarged
[2025-01-01] MEDS: FUROSEMIDE 40 MG/4 ML VIAL IV SCH (18:45)
[2025-01-01 21:00] LABS: Urine Protein, UAD 1+ (Negative)
[2025-01-01 21:09] LABS: Protein, Urine 72.8 mg/dL (1-14)
[2025-01-01 21:17] LABS: Amphetamine Screen, Urine Neg (NEGATIVE); Barbiturate Scree,Urine Neg (NEGATIVE); Benzodiazephine Screen, Urine Pos (NEGATIVE); Cannabinoid Screen, Urine Neg (NEGATIVE); Cocaine Screen, Urine Neg (NEGATIVE); Opiate Scree,Urine Neg (NEGATIVE); Phencyclidine Screen, Urine Neg (NEGATIVE)
[2025-01-01] MEDS: SACUBITRIL-VALSARTAN 24mg/26mg TAB PO SCH (23:04)
[2025-01-02] VITALS (8 sets, daily range): BP systolic 128–153; BP diastolic 75–99; PULSE 60–85; RESP 16–22; TEMP 97.7–98.4; O2SAT 94–98
[2025-01-02] MEDS ORDERED: HEPARIN DRIP/D5W 100UNITS/ML 250 ML IV SCH (00:15)
[2025-01-02] MEDS ORDERED: HEPARIN SODIUM (PORCINE) 5000 UNITS/ML 1ML VIAL IV ONE (00:15)
[2025-01-02] MEDS: AMIODARONE 360mg/200mL PREMIX 200 ML IV SCH (05:36)
[2025-01-02 06:57] LABS: Nucleated Red Blood Cells % 0.1 %
[2025-01-02 07:02] LABS: Hemoglobin 19.0 g/dL (13.5-17.5); Mean Corpuscular Hemoglobin 29.2 pg (28.0-32.0); Mean Corpuscular Volume 86.4 fL (80.0-100.0)
[2025-01-02 07:10] LABS: Calcium 9.1 mg/dL (8.7-10.4); Chloride 104 mmol/L (98-107); Potassium 4.5 mmol/L (3.5-5.1); Sodium 143 mmol/L (136-145)
[2025-01-02 07:11] LABS: Anion Gap 11 (5-15); Carbon Dioxide 28 mmol/L (20-31)
[2025-01-02 07:16] LABS: BUN/Creatinine Ratio 10.1 (10.0-20.0); Blood Urea Nitrogen 13 mg/dL (9-23); Glucose 99 mg/dL (74-106)
[2025-01-02 07:21] LABS: Hematocrit 56.2 % (41.0-53.0)
[2025-01-02] MEDS: FUROSEMIDE 40 MG/4 ML VIAL IV ONE (07:39)
[2025-01-02] MEDS: METOPROLOL SUCCINATE XL 50 MG TAB PO ONE (07:39)
[2025-01-02] MEDS: METOPROLOL SUCCINATE XL 50 MG TAB PO SCH (09:33)
[2025-01-02] MEDS: SPIRONOLACTONE 25 MG TAB PO SCH (09:33)
[2025-01-02] MEDS: EMPAGLIFLOZIN 10 MG TAB PO SCH (09:34)
--- NOTE | 2025-01-02 13:02 | DVHOP2 ---
Operative Report Operative Report CARDIAC WOMEN'S STUDIES PROFESSOR PROCEDURE REPORT [place], [place] Date of Service: 01/01/25 Geophysical Laboratory Supervisor: Carrol Nunez MD PROCEDURES PERFORMED: Coronary angiogram, left heart catheterization, conscious sedation administration and supervision, less than 15 minutes; fluoroscopy use and interpretation. PREOPERATIVE DIAGNOSES: nstemi, ICD shock, rapid afib POSTOP DIAGNOSIS: diastolic HF DESCRIPTION OF PROCEDURE: The patient or appropriate family signed informed consent understanding the risks, benefits and alternatives of the procedure, they wished to proceed. The patient was brought to the cardiac photographic laboratory supervisor in n.p.o. state. The patient was prepped in a sterile fashion. Sedation was used per cardiac cath protocol. I administered 2 mL of 2% lidocaine to the right wrist. With an antegrade front wall puncture. I cannulated the right radial artery and placed a 6-Tajik Glidesheath slender. Next, an intra-arterial spasmolytic was administered. Next, a - 6French Marissa catheter and XXXXX guide and were used for coronary angiogram and LVEDP measurement and pressure pullback. At the completion of procedure, all guides and wires were removed, and there were no immediate complications. FINDINGS: RCA: large vessel off the right sinus of Valsalva, there is no severe flow limiting stenosis. very sluggish flow suggestive of microvascular disease LEFT MAIN: Moderate large size left main, it bifurcates into LAD and circumflex. no stenosis CIRCUMFLEX: Moderate caliber vessel coming off the left main with no flow limiting stenosis. LAD: LAD is a moderate caliber vessel coming of the left main. no stenosis. very sluggish flow suggestive of microvascular disease LVEDP of 13 mmhg CONCLUSIONS: 1. NO severe cad noted 2. rapid Afib PLAN: Aggressive risk factor modification and medical management for the patient. rate control CARROL NUNEZ MD Jan 02, 2025 13:02
--- NOTE | 2025-01-02 14:21 | DVHPN2 ---
Consult Progress Note Date Seen: Jan 02, 2025 Subjective Review of Systems: CVS:Normal, RESPIRATORY:Normal, NEURO:Normal Other Systems: Cardiac asymptomatic at this time. nursing teacher reviewed with episodes of A-fib with RVR up to the 200s bpm for which ICD fired Objective vital signs Vital Sign Date Time Temp Pulse Resp B/P (MAP) Pulse Ox O2 Delivery O2 Flow Rate FiO2 01/02/25 09:33 65 136/75 01/02/25 09:00 98.1 18 95 98.1 01/02/25 08:00 Nasal Cannula* 2 28 Total Intake and Output 01/01/25 01/01/25 01/02/25 15:00 23:00 07:00 Intake Total 60 ml 286.66 ml 240 ml Balance 60 ml 286.66 ml 240 ml medications Current Medications Medications Dose Ordered Sig/Darius Route Start Time Stop Time Status Last Admin Dose Admin Aspirin 162 mg DAILY PO 01/01/25 10:00 01/02/25 09:33 162 MG Atorvastatin Calcium 20 mg HS PO 12/31/24 22:00 01/01/25 23:05 20 MG Ondansetron HCl 4 mg Q4HP PRN IV 12/31/24 21:45 Nitroglycerin 0.4 mg Q5MINP PRN SL 12/31/24 21:45 Morphine Sulfate 2 mg Q30M PRN IV 12/31/24 21:45 Metoprolol Succinate 50 mg DAILY PO 01/02/25 10:00 01/02/25 09:33 50 MG Sacubitril/ Valsartan 1 tab BID PO 01/01/25 22:00 01/02/25 09:32 1 TAB Spironolactone 12.5 mg DAILY PO 01/02/25 10:00 01/02/25 09:33 12.5 MG Empaglifozin 10 mg DAILY PO 01/02/25 10:00 01/02/25 09:34 10 MG Furosemide 40 mg BIDD IV 01/01/25 18:00 01/02/25 05:35 40 MG Examination: LUNGS:Abnormal (Diminished), CVS:Normal (A-fib controlled rate), NEURO:Normal laboratory and microbiology Laboratory Tests 01/02/25 05:51 Test 01/02/25 05:51 Range/Units Serum Glucose 99 74-106 mg/dL Problem List/Assessment/Plan Problem List/Assessment/Plan Acute on chronic decompensated HFrEF, NYHA Class III Likely persistent atrial fibrillation with rapid ventricular rate, stage III (on Eliquis/BB therapy) Implantable cardioverter-defibrillator shocks x 5 ([employer], 24-Oct-2024) Non-ischemic/dilated cardiomyopathy with LVEF of 30% Hypertension Dyslipidemia Obesity Plan/Recommendation (Dr. Dominguez) The patient with trending troponin levels underwent a coronary angiogram without catheter based intervention given no severe coronary artery disease noted. Transthoracic echocardiogram revealed a LVEF of 30% with dilated LV and severe global dysfunction. Reestablish Eliquis therapy ([id number] Score 3 points, HAS-BLED Score 2 points). Continue rate control with metoprolol XL, digoxin therapy (load on 1,000 mcg IV), and magnesium qd. Discontinue amiodarone drip, likely persistent A-fib. Replete electrolytes as necessary, potassium >4 and magnesium >2. Continue preload and afterload reduction, strict I&Os, fluid restriction, and daily weight. ICD interrogation completed revealing atrial fibrillation with rapid ventricular rate events status post shocks x3 on 31-Dec-2024. ICD firing given uncontrolled atrial fibrillation, continue aggressive rate control. If unable to control rate, we will consider an Electrophysiology evaluation. Thank you for allowing us to participate in this patient's care. Please call if you have any questions or concerns. Critical care time: 45 min. This medical document was created using an electronic medical record system with voice recognition software and computerized dictation system. Although this document has been carefully reviewed, there might still be some phonetic and typographical errors. Occasional wrong-word or ``sound-alike substitutions may have occurred due to the inherent limitations of voice recognition software. These areas are purely typographical due to imperfections of the software programs and do not reflect any compromise in the patient's medical care. Please read the chart carefully and recognize, using context, where these substitutions have occurred. Plan discussed with: Patient, Other Date of Service: Jan 02, 2025 Billing Provider: SIOMARA CODY Cardiology Common Codes: [id number] HOSP CARE([facility] SIOMARA CODY Jan 02, 2025 14:21
[2025-01-02] MEDS: APIXABAN 2.5 MG TAB PO ONE (14:31)
[2025-01-02] MEDS: DIGOXIN (250MCG/ML) 2 ML AMPULE IV ONE (14:32)
[2025-01-02] MEDS: MAGNESIUM OXIDE 400 MG TAB PO ONE (14:32)
--- NOTE | 2025-01-02 17:28 | DVHPNRES ---
Progress Note Date Seen: Jan 02, 2025 Resident Creating Document: MELYSSA VILLALPANDO RESIDENT Medical Necessity Reason Pt with a Central, PICC or Fol: No Subjective Review of Systems Efra Linares, 74-year-old male with past medical history of AICD device placed in October 31 2024, came in yesterday as he felt a shock wave from his AICD device twice in 15 minutes. Patient denies any dizziness, chest pain, nausea, vomiting, shortness of breaths or any other symptoms. on inquiry patient reports he has CHF and thinks the ejection fraction is about 30% which was diagnosed about 1 year and 8 months ago. PMH: AFib, CHF, CVA PSH: AICD device, rotator muscle surgery Family history: Father in his 80s due to cardiovascular cause, had pacemaker Social history: Patient lives with family. 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 Allergies: None Home medications: Eliquis, metoprolol, spironolactone, Lasix, potassium supplements ROS: 01/01/2025: Patient was seen and examined by me at the bedside. Overnight events were reviewed. Patient has no new active complaints. An echocardiogram is ordered, pending. We have kept the patient on telemetry, morphine, nitroglycerin, Zofran, atorvastatin given. Cardiac consult suggested: Scheduled for urgent cardiac catheterization and coronary angiogram at first available. meantime, discontinue heparin drip and reestablish Eliquis therapy postprocedure (FDA2TS1-CVYq Score 3 points, HAS-BLED Score 2 points). Continue rate control with metoprolol XL, likely persistent A-fib. Initiate preload and afterload reduction, strict I&Os, fluid restriction, and daily weight. ICD interrogation completed revealing atrial fibrillation with rapid ventricular rate events status post shocks x3 on 31-Dec-2024. 01/10/2025 Patient was seen and examined by me at the bedside. Overnight events were reviewed. Patient underwent a coronary angiogram without catheter based intervention given no severe coronary artery disease noted. Transthoracic echocardiogram revealed a LVEF of 30% with dilated LV and severe global dysfunction. Reestablish Eliquis therapy ([id number] Score 3 points, HAS-BLED Score 2 points). Continue rate control with metoprolol XL, digoxin therapy (load on 1,000 mcg IV), and magnesium qd. Discontinue amiodarone drip, likely persistent A-fib. ICD interrogation completed revealing atrial fibrillation with rapid ventricular rate events status post shocks x3 on 31-Dec-2024. ICD firing given uncontrolled atrial fibrillation, continue aggressive rate control. If unable to control rate, we will consider an Electrophysiology evaluation. Objective vital signs Vital Sign Date Time Temp Pulse Resp B/P (MAP) Pulse Ox O2 Delivery O2 Flow Rate FiO2 01/02/25 17:26 146/92 01/02/25 14:32 69 01/02/25 13:00 97.7 18 96 97.7 01/02/25 08:00 Nasal Cannula* 2 28 Total Intake and Output 01/01/25 01/01/25 01/02/25 15:00 23:00 07:00 Intake Total 60 ml 286.66 ml 240 ml Balance 60 ml 286.66 ml 240 ml medications Current Medications Medications Dose Ordered Sig/Darius Route Start Time Stop Time Status Last Admin Dose Admin Atorvastatin Calcium 20 mg HS PO 12/31/24 22:00 01/01/25 23:05 20 MG Ondansetron HCl 4 mg Q4HP PRN IV 12/31/24 21:45 Nitroglycerin 0.4 mg Q5MINP PRN SL 12/31/24 21:45 Morphine Sulfate 2 mg Q30M PRN IV 12/31/24 21:45 Metoprolol Succinate 50 mg DAILY PO 01/02/25 10:00 01/02/25 09:33 50 MG Sacubitril/ Valsartan 1 tab BID PO 01/01/25 22:00 01/02/25 09:32 1 TAB Spironolactone 12.5 mg DAILY PO 01/02/25 10:00 01/02/25 09:33 12.5 MG Empaglifozin 10 mg DAILY PO 01/02/25 10:00 01/02/25 09:34 10 MG Furosemide 40 mg BIDD IV 01/01/25 18:00 01/02/25 17:26 40 MG Magnesium Oxide 400 mg DAILY PO 01/03/25 10:00 Digoxin 0.125 mg DAILY PO 01/03/25 10:00 Apixaban 5 mg BID PO 01/02/25 22:00 Examination Pt is lying on bed General Appearance: Alert, Oriented X3, Cooperative, Not in acute distress HEENT: Atraumatic, Mucous membranes moist/pink Respiratory: Clear to auscultation, Normal air movement, No added sounds Cardiovascular: Regular rate, Normal S1, Normal S2, No murmurs Abdominal: Active bowel sounds, Soft, no distention, no tenderness Extremities: No edema, Normal pulses, No tenderness/swelling Skin: No Significant rash, except past surgical scars Neuro: Normal speech, sensorimotor deficits none Psych/Mental Status: Mental status NL, Mood NL Nurse was there as signal system testing maintainer during examination laboratory and microbiology Laboratory Tests 01/02/25 05:51 Test 01/02/25 05:51 Range/Units Serum Glucose 99 74-106 mg/dL Labs and/or images reviewed: Labs reviewed by me, Image(s) reviewed by me Problem List/Assessment/Plan Problem List/Assessment/Plan #NSTEMI type 2 #acute chest pain secondary to AICD firing X 3 #Acute on chronic decompensated HFrEF, NYHA Class III #Likely persistent atrial fibrillation with rapid ventricular rate, stage III (on Eliquis/BB therapy) #Implantable cardioverter-defibrillator shocks x 5 ([employer], 24-Oct-2024) #Non-ischemic/dilated cardiomyopathy with LVEF of 30% #Hypertension -Troponin 3178>3163>652 -on telemetry -echo, pending -morphine to mg to 30 PRN -nitroglycerin 0.4 mg Q 5 min PRN -aspirin 162 mg daily -metoprolol 50 mg, spironolactone 12.5 mg, empagliflozin 10 mg, Entresto 1 tab -Zofran 4 mg q.4 PRN -heparin -Atorvastatin 40 mg daily -furosemide 40 mg b.i.d. -01/01/25: cardiology -underwent a coronary angiogram without catheter based intervention given no severe coronary artery disease noted. Transthoracic echocardiogram revealed a LVEF of 30% with dilated LV and severe global dysfunction. Reestablish Eliquis therapy ([id number]-FPEs Score 3 points, HAS-BLED Score 2 points). Continue rate control with metoprolol XL, digoxin therapy (load on 1,000 mcg IV), and magnesium qd. Discontinue amiodarone drip, likely persistent A-fib. ICD interrogation completed revealing atrial fibrillation with rapid ventricular rate events status post shocks x3 on 31-Dec-2024. ICD firing given uncontrolled atrial fibrillation, continue aggressive rate control. If unable to control rate, we will consider an Electrophysiology evaluation. #LEYLA due to VMN -Creatinine 1.32 -Monitor #hyperbilirubinemia -monitor labs #Dyslipidemia -Atorvastatin 40 mg daily #Obesity counseled regarding lifestyle modification, healthier diet, exercise Diet: cardiac diet Goals of care discussed with the patient for more than 27 minutes: Full code status Case discussed with , patient and nurse. Plan discussed with: Patient, Other (rn) My Orders My Orders Orders - MELYSSA VILLALPANDO Procedure Category Date Status Time Cardiac DIET 01/01/25 Transmitted Diet-2gna,Lofat,Lochol Dinner Discontinue Chauhan MABEL 01/01/25 In Process Catheter 18:06 Date of Service: Jan 02, 2025 Billing Provider: HAILE MAYER MD Common Visit Codes: [id number] INP/OBS CARE(HIGH) MELYSSA VILLALPANDO Jan 02, 2025 17:28 HAILE MAYER MD Jan 02, 2025 18:01
[2025-01-02] MEDS: APIXABAN 5 MG TAB PO SCH (21:04)
[2025-01-03] VITALS (7 sets, daily range): BP systolic 118–138; BP diastolic 51–95; PULSE 58–113; RESP 16–20; TEMP 97.8–98.6; O2SAT 94–96
[2025-01-03 06:34] LABS: Hematocrit 58.0 % (41.0-53.0); Hemoglobin 19.7 g/dL (13.5-17.5); Mean Corpuscular Hemoglobin 29.0 pg (28.0-32.0); Mean Corpuscular Volume 85.3 fL (80.0-100.0); Nucleated Red Blood Cells % 0.2 %
[2025-01-03 07:00] LABS: Alanine Aminotransferase 20 U/L (7-40); Alkaline Phosphatase 63 U/L (46-116); Anion Gap 12 (5-15); BUN/Creatinine Ratio 16.4 (10.0-20.0); Blood Urea Nitrogen 21 mg/dL (9-23); Calcium 9.2 mg/dL (8.7-10.4); Carbon Dioxide 25 mmol/L (20-31); Chloride 103 mmol/L (98-107); Glucose 94 mg/dL (74-106); Potassium 4.2 mmol/L (3.5-5.1); Sodium 140 mmol/L (136-145)
[2025-01-03 07:01] LABS: Total Protein 6.8 g/dL (5.7-8.2)
[2025-01-03 07:02] LABS: Albumin 4.5 g/dL (3.2-4.8)
[2025-01-03 07:15] LABS: Bilirubin, Total 2.0 mg/dL (0.2-1.0)
[2025-01-03] MEDS: MAGNESIUM OXIDE 400 MG TAB PO SCH (09:56)
[2025-01-03] MEDS: DIGOXIN 0.125 MG TAB PO SCH (10:01)
[2025-01-03] MEDS ORDERED: DIGO0.25 PO (14:34)
--- NOTE | 2025-01-03 14:38 | DVHDS2 ---
Discharge Summary Date of Admission Dec 31, 2024 at 21:31 Date of Discharge: Jan 03, 2025 Labs/Diagnostic Data: Laboratory Results Test 01/03/25 05:43 01/01/25 20:30 01/01/25 06:06 12/31/24 19:08 White Blood Count 9.6 10^3/uL (4.4-10.8) Red Blood Count 6.80 10^6/uL (4.5-5.90) Hemoglobin 19.7 g/dL (13.5-17.5) Hematocrit 58.0 % (41.0-53.0) Mean Corpuscular Volume 85.3 fL (80.0-100.0) Mean Corpuscular Hemoglobin 29.0 pg (28.0-32.0) Mean Corpuscular Hemoglobin Concent 34.0 g/dL (32.0-36.0) Red Cell Distribution Width 17.4 % (11.8-14.3) Platelet Count 166 10^3/uL (140-450) Mean Platelet Volume 10.1 fL (6.9-10.8) Neutrophils (%) (Auto) 74.5 % (37.0-80.0) Lymphocytes (%) (Auto) 14.2 % (10.0-50.0) Monocytes (%) (Auto) 9.5 % (0.0-12.0) Eosinophils (%) (Auto) 1.3 % (0.0-7.0) Basophils (%) (Auto) 0.5 % (0.0-2.0) Neutrophils # (Auto) 7.2 10 ^3/uL (1.6-8.6) Lymphocytes # (Auto) 1.4 10 ^3/uL (0.4-5.4) Monocytes # (Auto) 0.9 10 ^3/uL (0-1.3) Eosinophils # (Auto) 0.1 10 ^3/uL (0-0.8) Basophils # (Auto) 0 10 ^3/uL (0-0.2) Nucleated Red Blood Cells 0.2 % Sodium Level 140 mmol/L (136-145) Potassium Level 4.2 mmol/L (3.5-5.1) Chloride Level 103 mmol/L (98-107) Carbon Dioxide Level 25 mmol/L (20-31) Anion Gap 12 (5-15) Blood Urea Nitrogen 21 mg/dL (9-23) Creatinine 1.28 mg/dL (0.700-1.30) Glomerular Filtration Rate Calc 59 mL/min (>90) BUN/Creatinine Ratio 16.4 (10.0-20.0) Serum Glucose 94 mg/dL (74-106) Calcium Level 9.2 mg/dL (8.7-10.4) Total Bilirubin 2.0 mg/dL (0.2-1.0) Aspartate Amino Transferase (AST) 34 U/L (13-40) Alanine Aminotransferase (ALT) 20 U/L (7-40) Alkaline Phosphatase 63 U/L (46-116) Total Protein 6.8 g/dL (5.7-8.2) Albumin 4.5 g/dL (3.2-4.8) Urine Color Yellow (Yellow) Urine Clarity Clear (Clear) Urine pH 5.5 (5.0-9.0) Urine Specific [place] 1.050 (1.001-1.035) Urine Protein 1+ (Negative) Urine Ketones Trace (Negative) Urine Blood 1+ /uL (Negative) Urine Nitrite Negative (Negative) Urine Bilirubin Negative (Negative) Urine Urobilinogen Normal mg/dL (Negative) Urine Leukocyte Esterase Negative /uL (Negative) Urine RBC 4 /hpf (0 - 3) Urine Microscopic WBC 1 /HPF (0-3) Urine Squamous Epithelial Cells Few /hpf (<5) Urine Bacteria None seen /hpf (None Seen) Urine Mucus Few (None Seen) Urine Creatinine 206.81 mg/dL (30.0-125.0) Urine Protein/Creatinine Ratio 0.35 Urine Sodium 90 mmol/L (40-220) Urine Glucose Normal mg/dL (Normal) Urine Total Protein 72.8 mg/dL (1-14) Urine Opiates Screen Neg (NEGATIVE) Urine Fentanyl Screen Pos (NEGATIVE) Urine Barbiturates Screen Neg (NEGATIVE) Urine Phencyclidine Screen Neg (NEGATIVE) Urine Amphetamines Screen Neg (NEGATIVE) Urine Benzodiazepines Screen Pos (NEGATIVE) Urine Cocaine Screen Neg (NEGATIVE) Urine Cannabinoids Screen Neg (NEGATIVE) Prothrombin Time 11.7 sec (9.3-11.8) Prothrombin Time INR 1.12 (0.9-1.15) Activated Partial Thromboplast Time 51.5 SEC (24.5-34.5) Hemoglobin A1c 5.5 % A1C (<5.7) Magnesium Level 2.2 mg/dL (1.6-2.6) Troponin I High Sensitivity 6465 ng/L (</=54) Triglycerides Level 81 mg/dL (< 150) Cholesterol Level 178 mg/dL (< 200) LDL Cholesterol 141 mg/dL (< 100) HDL Cholesterol 43 mg/dL (40-59) Thyroid Stimulating Hormone (TSH) 1.40 uIU/mL (0.55-4.78) B-Type Natriuretic Peptide 572.86 pg/mL (0-100) Other Laboratory Tests 01/03/25 05:43 Brief Hx & Hospital Course: 74-year-old male presents for evaluation of shortness for breath. Patient reports feeling his AICD set off 3 times today. He states that subsequently he developed shortness for breath. Denies dizziness or chest pain. No other acute complaints reported. He is admitted and evaluated by oracle application architect underwent a coronary angiogram did not reveal any significant coronary artery disease. Patient recommended medical therapy. Patient is in atrial fibrillation with a rapid ventricular response for which he was started on amiodarone and subsequently transitioned to oral digoxin and continued on his home metoprolol. With this is heart rate has been controlled in the 70s 80s. He is feeling better. Back to normal baseline status. Therefore it is felt he could be safely discharged home. I have advised the patient to continue digoxin and metoprolol and other home medications per his discharge med reconciliation list and as prescribed. He is advised to follow up with his PCP and oracle application architect in one week. Patient verbalized understanding his hospital diagnosis, treatment he received, discharge medications, discharge instructions and agree with the follow up plan of care as outlined. Consults/Reason for consult Operative Report CARDIAC GOVERNMENT SERVICES PROFESSIONAL PROCEDURE REPORT [place], [place] Date of Service: 01/01/25 Pipe Fitter Helper: Carrol Nunez MD PROCEDURES PERFORMED: Coronary angiogram, left heart catheterization, conscious sedation administration and supervision, less than 15 minutes; fluoroscopy use and interpretation. PREOPERATIVE DIAGNOSES: nstemi, ICD shock, rapid afib POSTOP DIAGNOSIS: diastolic HF DESCRIPTION OF PROCEDURE: The patient or appropriate family signed informed consent understanding the risks, benefits and alternatives of the procedure, they wished to proceed. The patient was brought to the cardiac laborer [place] in n.p.o. state. The patient was prepped in a sterile fashion. Sedation was used per cardiac cath protocol. I administered 2 mL of 2% lidocaine to the right wrist. With an antegrade front wall puncture. I cannulated the right radial artery and placed a 6-[place] Glidesheath slender. Next, an intra-arterial spasmolytic was administered. Next, a - 6French [place] catheter and XXXXX guide and were used for coronary angiogram and LVEDP measurement and pressure pullback. At the completion of procedure, all guides and wires were removed, and there were no immediate complications. FINDINGS: RCA: large vessel off the right sinus of Valsalva, there is no severe flow limiting stenosis. very sluggish flow suggestive of microvascular disease LEFT MAIN: Moderate large size left main, it bifurcates into LAD and circumflex. no stenosis CIRCUMFLEX: Moderate caliber vessel coming off the left main with no flow limiting stenosis. LAD: LAD is a moderate caliber vessel coming of the left main. no stenosis. very sluggish flow suggestive of microvascular disease LVEDP of 13 mmhg CONCLUSIONS: 1. NO severe cad noted 2. rapid Afib PLAN: Aggressive risk factor modification and medical management for the patient. rate control CARROL NUNEZ MD Jan 02, 2025 13:02 Operations or Procedures ORDER NUMBER(s): [id number], ACCESSION NUMBER(s): [id number] APPROVED REPORT EXAM: Two-dimensional and M-mode echocardiogram with Doppler and color Doppler. Blood Pressure: 144/105 mmHg Surgery/Intervention Pacemaker: RISK FACTORS Obesity: Height: 6'1", Weight: 270 DIMENSIONS LVDd 5.9 (3.8-5.7cm) LA (2D) 5.2 (1.9-4.0cm) Aortic Root 4.1 (2.0- 3.7cm) LVDs 5.2 (2.5-4.0cm) LA (MM) (1.9-4.0cm) Aortic Cusp Exc 2.1 (1.5- 2.0cm) EF (%) 26.0 (55-70%) Rt. Atrium 5.1 (1.9-4.0cm) Asc. Aorta cm IVSd 1.2 (0.7-1.1cm) RV (D) (1.8-2.4cm) PWd 1.2 (0.7-1.1cm) Mitral Valve Mitral Mitral Stenosis E wave 0.77m/s MV Mean GR. mmHg E/A ratio 0.0 2D MVA cm2 Aortic Valve Aortic Valve Aortic Stenosis V1 0.70m/s AO Mean GR. 2mmHg V2 0.93m/s AO Peak GR. 3mmHg LVOT Diameter 2.1 (1.8-2.4cm) Doppler ANNABEL 2.61cm2 Other Information Technically limited study due to body habitus. Conclusion lvef 30% dilated LV severe global dysfunction limited study given body habitus mild LVH RV pacing lead present left atrium enlarged SIGNED BY: CARROL NUNEZ MD SIGNED DATE/TIME: 01/01/25 709 Condition at Discharge: Stable Final Diagnosis/Problems List AFib with a RVR, congestive cardiomyopathy Discharge Disposition: Home Discharge Instruct/Medications Diet: Consistent carbohydrate, Cardiac 2g Na,low cholest Activity: No Restrictions, As Tolerated Follow Up/Referral: Your primary care physician next week and oracle application architect next week for further evaluation of AFib and management Medications: As prescribed and home medications as you were taking per discharge med list Scheduled Apixaban Base (Eliquis), 5 MG PO DAILY, (Reported) Digoxin (Digoxin), 250 MCG PO DAILY@BREAKFAST Furosemide (Lasix), 40 MG PO TUTHSA, (Reported) Metoprolol Succinate (Metoprolol Succinate Er), 1 TAB PO BID, (Reported) Sacubitril-Valsartan (Entresto 24-26 mg), 1 TAB PO DAILY, (Reported) Spironolactone (Spironolactone), 12.5 MG PO DAILY, (Reported) Discharge Statement: "Patient was advised to return to the ER or call 911 if any headaches, dizziness, shortness of breath, chest pain, abdominal pain, bleeding, fevers, or worsening of medical condition. Patient was counseled about treatment plan, medications, possible side effects, patientverbalized understanding. All questions were answered to the best of my ability. This discharge took greater then 30 minutes in planning, reviewing documentation, counseling the patient, and discussing with other team members." ASSESSMENT ASSESSMENT Assessment AFib with a RVR, congestive cardiomyopathy DEVENDRA JEAN-BAPTISTE MD Jan 03, 2025 14:38
== END 2025-01-03 16:20 | disposition home or self-care (01) | DRG 280 ==
LOC: ER 18:55 → EDBD 18:55 → OVERFLOW 21:31 → TELE-WESTW 01-01 10:44
PROVIDERS: ADMIT Hospitalist; ATTEND Internal Medicine
PROC: B211YZZ Fluoroscopy of Multiple Coronary Arteries using Other Contrast (ICD-10-PCS; principal; 2025-01-01)
PROC: 4A023N7 Measurement of Cardiac Sampling and Pressure, Left Heart, Percutaneous Approach (ICD-10-PCS; 2025-01-01)
PROC: B215YZZ Fluoroscopy of Left Heart using Other Contrast (ICD-10-PCS; 2025-01-01)
DX: I11.0 Hypertensive heart disease with heart failure (principal); I50.43 Acute on chronic combined systolic (congestive) and diastolic (congestive) heart failure; I21.A1 Myocardial infarction type 2; N17.0 Acute kidney failure with tubular necrosis; I42.0 Dilated cardiomyopathy; E66.9 Obesity, unspecified; E80.6 Other disorders of bilirubin metabolism; Z68.35 Body mass index [BMI] 35.0-35.9, adult; I48.91 Unspecified atrial fibrillation; E78.5 Hyperlipidemia, unspecified; M54.12 Radiculopathy, cervical region; Z95.810 Presence of automatic (implantable) cardiac defibrillator; Z86.73 Personal history of transient ischemic attack (TIA), and cerebral infarction without residual deficits; Z82.49 Family history of ischemic heart disease and other diseases of the circulatory system; Z79.01 Long term (current) use of anticoagulants
CPT/HCPCS: 36415; 71045; 80048; 80053; 80061; 80307; 81001; 82570; 83036; 83735; 83880; 84156; 84300; 84443; 84484; 85025; 85610; 85730; 93005; 93306; 93458; 99152; G0378; J2250; J7042; Q9967

== ENCOUNTER 2025-02-07 19:02 | Emergency (ER) | payer BC, OTHER ==
[~2025-02-07] VITALS: Ht 185.4 cm; Wt 114.8 kg
[~2025-02-07 19:02] MED LIST: APIX5TAB PO; DIGO0.25 PO; FURO1TAB31 PO; METO-289 PO; SACU1TAB PO; SPIR25TA8 PO
--- NOTE | 2025-02-07 19:23 | ECG ---
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
[2025-02-07 19:50] LABS: Hematocrit 55.8 % (41.0-53.0); Hemoglobin 19.3 g/dL (13.5-17.5); Mean Corpuscular Hemoglobin 30.1 pg (28.0-32.0); Mean Corpuscular Volume 86.8 fL (80.0-100.0); Nucleated Red Blood Cells % 0.2 %
[2025-02-07 20:06] LABS: Alanine Aminotransferase 34 U/L (7-40); Albumin 4.2 g/dL (3.2-4.8); Alkaline Phosphatase 70 U/L (46-116); Anion Gap 10 (5-15); BUN/Creatinine Ratio 11.6 (10.0-20.0); Blood Urea Nitrogen 13 mg/dL (9-23); Calcium 9.1 mg/dL (8.7-10.4); Carbon Dioxide 25 mmol/L (20-31); Chloride 104 mmol/L (98-107); Glucose 96 mg/dL (74-106); Potassium 4.3 mmol/L (3.5-5.1); Sodium 139 mmol/L (136-145); Total Protein 6.8 g/dL (5.7-8.2)
[2025-02-07 20:09] LABS: Bilirubin, Total 1.5 mg/dL (0.2-1.0)
--- NOTE | 2025-02-07 20:37 | DVH ---
CLINICAL HISTORY: HTN TECHNIQUE: Single view of the chest was obtained. COMPARISON: XY CHEST XRAY 1 VIEW on DOS: 12/31/24 FINDINGS: There is a single lead left chest wall pacing device. The heart size and pulmonary vasculature are no rmal. The lungs are clear. IMPRESSION: NO ACUTE CARDIOPULMONARY PROCESS.
--- NOTE | 2025-02-07 21:28 | ED.PDOC ---
History of Present Illness HPI Comments HPI: 74 y/o M, with PMHx of AFib, CHF, CVA, and HTN presents to the ED for CC of high blood pressure. Patient states, he has been experiencing hypertensive blood pressure readings onset, this morning (02/07/25). Patient reports, a blood pressure of 172/152 as of 0500 this morning. At this time patient's blood pressure read at 152/98; patient is asymptomatic. Patient denies headache, dizziness, nausea, vomiting, or photophobia. No other symptoms or modifying factors are present at this time. Initial Vitals BP: HR: RR: O2: Temp: Past Medical History: AFIB, CHF, CVA, HTN Past Surgical History: DENIES ANY Social History: Denies ETOH, smoking, and drug use. Medications:METOPROL, ELIQUIS, DIGOXIN Allergies: NKA Mera: HTN. Patient is completely asymptomatic. HPI: Poor Historian. REVIEW OF SYSTEMS: CONSTITUTIONAL: Denies acute: fever, diaphoresis, chills, generalized weakness. HEAD: Denies acute: headache, photophobia Eyes: Denies acute: Double vision, vision loss, eye pain, eye discharge. EARS: Denies acute: tinnitus, hearing loss, ear discharge, ear pain, THROAT: Denies acute: sore throat, swelling, difficulty swallowing , pain with swallowing, change in voice. NECK: Denies acute: neck pain, neck swelling, stiff neck. HEART: Denies acute : chest pain, palpitations, LUNGS: Denies acute: SOB, wheezing, cough, hemoptysis ABDOMEN: Denies acute: abdominal pain, Nausea, Vomiting, diarrhea, melena , hematemesis, hematochezia SKIN: Denies acute: rash, redness, lesions, itchiness. EXTREMITIES: Denies acute: calf pain, numbness, tingling, weakness, denies pain in extremity. Denies acute: Low back pain. Neuro: Denies acute: focal neurological deficit, motor or sensory focal neurological deficit, tremors, seizure like activity, confusion, dizziness, change in mental status, loss of bowel or bladder function, cauda equina like symptoms. : Denies acute: dysuria, hematuria, flank pain, increase in urinary frequency. PSYCH: Denies acute: hallucination, suicidal ideation, homicidal ideation. PHYSICAL EXAM: General: ----no----acute distress, awake and alert. Head: normocephalic, atraumatic. Neck: supple, trachea is midline, no swelling. Throat: Normal phonation. Eyes:, no erythema, no purulent discharge, no proptosis, no icterus. Heart: regular rate, regular rhythm, no significant murmur appreciated. Lungs: no apparent respiratory distress, Able to speak in full sentences. No wheezing, no rhonchi, no crackles. No stridors Clear to auscultation bilaterally. Abdomen: non tender to palpation, non distended, soft, no guarding, no rebound, + bowel sounds. Neuro: Awake, Alert, oriented to name, self, situation, follows commands GCS=15. Speech is normal. Skin: no petechia, no purpura, no cyanosis, non-pale, not jaundice. Lower extremities: --no - Pitting edema no deformity, no focal swelling, no calf TTP. Makes eye contact. moves all four extremities. Face: no apparent facial droop. Ambulating in the ED independently. ED COURSE: DISCLAIMER: This medical document was created using an electronic medical record system with voice recognition software and computerized dictation system. Although this document has been carefully reviewed, there might still be some phonetic and typographical errors. Occasional wrong-word or "sound-alike" substitutions may have occurred due to the inherent limitations of voice recognition software. T hese areas are purely typographical due to imperfections of the software programs and do not reflect any compromise in the patient's medical care. Please read the chart carefully and recognize, using context, where these substitutions have occurred. Chief Complaint: High Blood Pressure Time Seen by MD: 21:00 Primary Care Provider: JUANITA Reviewed Notes: Nurses Notes, Medications, Allergies Allergies: Coded Allergies: NO KNOWN ALLERGIES (Unverified , 11/27/13) Home Meds Active Scripts Digoxin (Digoxin) 250 Mcg Tab, 250 MCG PO DAILY@BREAKFAST, #60 TAB Prov:DEVENDRA JEAN-BAPTISTE MD 01/03/25 Reported Medications Spironolactone (Spironolactone) 25 Mg Tab, 12.5 MG PO DAILY, TAB 01/01/25 Furosemide (Lasix) 40 Mg Tab, 40 MG PO TUTHSA, TAB 01/01/25 Metoprolol Succinate (Metoprolol Succinate Er) 50 Mg Tab, 1 TAB PO BID, #30 TAB 5 Refills 01/01/25 Sacubitril-Valsartan (Entresto 24-26 mg) 1 Tab Tab, 1 TAB PO DAILY, TAB 01/01/25 Apixaban Base (ELIQUIS) 5 Mg Tab, 5 MG PO DAILY, TAB 01/01/25 Information Source: Patient Mode of Arrival: Ambulatory Severity: Moderate Timing: Hours Duration: Since onset Prehospital treatment: None Was a procedure done? Was a procedure done?: No Differential Dx Considerations may include: DDX include renal disease, thyroid disease, electrolyte abnormality, increased salt intake, medications non-compliance, undiagnosed HTN, Hypertensive crisis, hypertensive urgency., drug toxicity. X-Ray, Labs, Meds, VS Vital Signs Date Time Temp Pulse Resp B/P (MAP) Pulse Ox O2 Delivery O2 Flow Rate FiO2 02/07/25 21:36 150/98 02/07/25 21:17 98.3 60 20 150/98 (115) 96 98.3 02/07/25 19:15 83 02/07/25 19:03 97.9 67 14 159/86 95 97.9 Lab Test 02/07/25 20:34 02/07/25 19:38 02/07/25 19:26 Range/Units Troponin I High Sensitivity 8 8 </=54 ng/L D-Dimer, Quantitative Pending Sodium Level 139 136-145 mmol/L Potassium Level 4.3 3.5-5.1 mmol/L Chloride Level 104 98-107 mmol/L Carbon Dioxide Level 25 20-31 mmol/L Anion Gap 10 5-15 Blood Urea Nitrogen 13 9-23 mg/dL Creatinine 1.12 0.700-1.30 mg/dL Glomerular Filtration Rate Calc 69 >90 mL/min BUN/Creatinine Ratio 11.6 10.0-20.0 Serum Glucose 96 74-106 mg/dL Calcium Level 9.1 8.7-10.4 mg/dL Total Bilirubin 1.5 H 0.2-1.0 mg/dL Aspartate Amino Transferase (AST) 28 13-40 U/L Alanine Aminotransferase (ALT) 34 7-40 U/L Alkaline Phosphatase 70 46-116 U/L B-Type Natriuretic Peptide Pending Total Protein 6.8 5.7-8.2 g/dL Albumin 4.2 3.2-4.8 g/dL White Blood Count 7.9 4.4-10.8 10^3/uL Red Blood Count 6.43 H 4.5-5.90 10^6/uL Hemoglobin 19.3 H 13.5-17.5 g/dL Hematocrit 55.8 H 41.0-53.0 % Mean Corpuscular Volume 86.8 80.0-100.0 fL Mean Corpuscular Hemoglobin 30.1 28.0-32.0 pg Mean Corpuscular Hemoglobin Concent 34.7 32.0-36.0 g/dL Red Cell Distribution Width 17.8 H 11.8-14.3 % Platelet Count 170 140-450 10^3/uL Mean Platelet Volume 10.1 6.9-10.8 fL Neutrophils (%) (Auto) 67.0 37.0-80.0 % Lymphocytes (%) (Auto) 21.4 10.0-50.0 % Monocytes (%) (Auto) 9.7 0.0-12.0 % Eosinophils (%) (Auto) 1.1 0.0-7.0 % Basophils (%) (Auto) 0.8 0.0-2.0 % Neutrophils # (Auto) 5.3 1.6-8.6 10 ^3/uL Lymphocytes # (Auto) 1.7 0.4-5.4 10 ^3/uL Monocytes # (Auto) 0.8 0-1.3 10 ^3/uL Eosinophils # (Auto) 0.1 0-0.8 10 ^3/uL Basophils # (Auto) 0.1 0-0.2 10 ^3/uL Nucleated Red Blood Cells 0.2 % Current Medications Medications (Trade) Dose Ordered Sig/Darius Route Start Time Stop Time Status Last Admin Nitroglycerin (Ntrostat Sublingual) 0.4 mg ONCE ONCE SL 02/07/25 19:30 02/07/25 19:31 DC 02/07/25 21:[address] [address] Ph: [phone] DIAGNOSTIC IMAGING Diagnostic Imaging Report : [id number] Signed PATIENT: CAROLE MERA ACCT: [id number] UNIT: [id number] : 1950 LOC: ER ROOM / BED: / AGE / SEX: 74 / M ADM STATUS: REG ER SERVICE 25 ORDERING PHYSICIAN: RACHEL KING DO PROCEDURE(s): CXRP - CHEST PORTABLE REASON: HTN ORDER NUMBER(s): [id number], ACCESSION NUMBER(s): [id number] CLINICAL HISTORY: HTN TECHNIQUE: Single view of the chest was obtained. COMPARISON: XY CHEST XRAY 1 VIEW on DOS: 12/31/24 FINDINGS: There is a single lead left chest wall pacing device. The heart size and pulmonary vasculature are normal. The lungs are clear. IMPRESSION: NO ACUTE CARDIOPULMONARY PROCESS. ATED BY: NICOLE CAREY MD DICTATED DATE/TIME: 02/07/252034 SIGNED BY: NICOLE CAREY MD SIGNED DATE/TIME: 02/07/252034 CC: Time of 1ST Reevaluation: 21:30 Reevaluation 1ST: Unchanged Time of 2ND Reevaluation: 23:01 Reevaluation 2ND: Improved Patient Education/Counseling: Diagnosis, Treatment Family Education/Counseling: No Family Present SEPSIS Sepsis Screen Date sepsis recognized/suspect: Feb 07, 2025 Time Sepsis recognized/suspect: 1902 Recent Procedure: No On Antibiotic Therapy: No Respiratory Rate >20: No Heart Rate >90: No Temp<36 C (96.8 F) or >38.3 C: No SBP <90 or MAP <65 mmHG: No New Acute Mental Status Change: No Is the patient on CPAP, BIPAP,: No Physician Orders [employer] [place] (02/07/25 ) Chest Portable (02/07/25 19:26) B-Type Natriuretic Peptide (02/07/25 22:41) D-Dimer (02/07/25 22:42) Vital Signs Date Time Temp Pulse Resp B/P (MAP) Pulse Ox O2 Delivery O2 Flow Rate FiO2 02/07/25 21:36 150/98 02/07/25 21:17 98.3 60 20 150/98 (115) 96 98.3 02/07/25 19:15 83 02/07/25 19:03 97.9 67 14 159/86 95 97.9 Laboratory Tests Test 02/07/25 19:26 White Blood Count 7.9 10^3/uL (4.4-10.8) Medications Medications Dose Ordered Sig/Darius Route Start Time Stop Time Status Last Admin Dose Admin Nitroglycerin 0.4 mg ONCE ONCE SL 02/07/25 19:30 02/07/25 19:31 DC 02/07/25 21:36 Departure 1 Departure Time of Disposition: 23:01 Impression: Primary Impression: Hypertensive urgency Disposition: 01 HOME / SELF CARE / HOMELESS Condition: Stable Additional Instructions: Additional instructions: Please read all instructions provided in this packet carefully. You MUST follow-up with your primary care/family doctor in 1 to 2 days. If you are unable to see your primary care/family doctor, please return to our emergency room for re-assessment and re-evaluation in 1 to 2 days. Return to the emergency room here in our facility or to the nearest ER [facility] if your symptoms change or worsen. CONSULTATIONS: you MUST Follow-up for consultation as soon as possible with: -cardiology in 1-2 days. Please call for appointment You MUST call the consultants office yourself to make an appointment. You may need to arrange that through your insurance and/or your primary/family doctor. If you are unable to see the merchandising consultant in 1 to 2 days, you must return to our emergency room (or any other ER of your choice) for re-assessment and re- evaluation. Adequate fluid hydration. Although you have been discharged from the Emergency Department, this does not mean that you have a "clean bill of health". No definitive diagnosis for your symptoms has been made today. It is possible that you are in the process of developing a serious illness. This is why you must return to the ED without fail if any new or worsening symptoms develop. Monitoring blood pressure at home at least twice a day. Below is a copy of your radiological report for follow up: [address] [address] Ph: [phone] DIAGNOSTIC IMAGING Diagnostic Imaging Report : [id number] Signed PATIENT: CAROLE MERA ACCT: [id number] UNIT: [id number] : 1950 LOC: ER ROOM / BED: / AGE / SEX: 74 / M ADM STATUS: REG ER SERVICE 25 ORDERING PHYSICIAN: RACHEL KING DO PROCEDURE(s): CXRP - CHEST PORTABLE REASON: HTN ORDER NUMBER(s): [id number], ACCESSION NUMBER(s): [id number] CLINICAL HISTORY: HTN TECHNIQUE: Single view of the chest was obtained. COMPARISON: XY CHEST XRAY 1 VIEW on DOS: 12/31/24 FINDINGS: There is a single lead left chest wall pacing device. The heart size and pulmonary vasculature are normal. The lungs are clear. IMPRESSION: NO ACUTE CARDIOPULMONARY PROCESS. ATED BY: NICOLE CAREY MD DICTATED DATE/TIME: 02/07/252034 SIGNED BY: NICOLE CAREY MD SIGNED DATE/TIME: 02/07/252034 CC: Discharged With: Self Critical Care Note Critical Care Time?: No Heart Score Heart Score: Heart Score Response (Comments) Value History Slightly Suspicious 0 EKG N/A 0 Age >65 2 Risk Factors 1 or 2 risk factors 1 Troponin N/A 0 Total 3 I personally scribed for RACHEL KING DO ([email or web address]) on 02/07/25 at 21:28. Electronically submitted by Radha Llamas ([email or web address]). I personally scribed for RACHEL KING DO ([email or web address]) on 02/07/25 at 21:57. Electronically submitted by Radha Llamas ([email or web address]). RACHEL KING DO Feb 07, 2025 21:28
[2025-02-07] MEDS: NITROGLYCERIN 0.4 MG SL TAB SL ONE (21:36)
[2025-02-07 23:00] VITALS: BP 132/89; TEMP 98
[2025-02-07 23:44] VITALS: PULSE 71; RESP 20; O2SAT 98
== END 2025-02-07 23:46 | disposition home or self-care (01) ==
LOC: ER 19:02
DX: I16.0 Hypertensive urgency (principal); Z86.73 Personal history of transient ischemic attack (TIA), and cerebral infarction without residual deficits; Z79.899 Other long term (current) drug therapy
CPT/HCPCS: 36415; 71045; 80053; 84484; 85025; 93005

== ENCOUNTER 2025-02-11 05:58 | Emergency (ER) | payer BC ==
[~2025-02-11] VITALS: Ht 185.4 cm; Wt 114.0 kg
[2025-02-11 06:00] VITALS: TEMP 98.1
[2025-02-11 07:20] VITALS: BP 122/84; PULSE 64; RESP 18; O2SAT 98
--- NOTE | 2025-02-11 07:23 | ED.PDOC ---
History of Present Illness HPI Comments A 74 YEAR OLD FE/MALE PRESENTS TO THE ED WITH COMPLAINT OF HIGH BLOOD PRESSURE RECHECK. PATIENT STATES HE HAS A HISTORY OF HYPERTENSION AND WAS IN THIS ED 3 DAYS AGO FOR THIS COMPLAINT WHERE HE HAD A FULL CARDIAC WORKUP DONE ALL OF WHICH WAS NORMAL. PATIENT REPORTS HIS DISCHARGE INSTRUCTIONS TOLD HIM TO COME BACK TO THE ED TODAY FOR A RECHECK. PATIENT NOTES HE HAS NO COMPLAINTS AT THIS TIME. PATIENT DENIES FEVER, CHILLS, SHORTNESS OF BREATH, CHEST PAIN, ABDOMINAL PAIN, NAUSEA, VOMITING, HEADACHE, OR OTHER COMPLAINTS. NO OTHER SYMPTOMS OR MODIFYING FACTORS AT THIS TIME. PATIENT IS ALERT, ORIENTED X 4, AND HAS STEADY GAIT. Chief Complaint: High Blood Pressure Time Seen by MD: 06:28 Primary Care Provider: JUANITA Curry Notes: Nurses Notes, Medications, Allergies Allergies: Coded Allergies: NO KNOWN ALLERGIES (Unverified , 11/27/13) Home Meds Active Scripts Digoxin (Digoxin) 250 Mcg Tab, 250 MCG PO DAILY@BREAKFAST, #60 TAB Prov:DEVENDRA JEAN-BAPTISTE MD 01/03/25 Reported Medications Spironolactone (Spironolactone) 25 Mg Tab, 12.5 MG PO DAILY, TAB 01/01/25 Furosemide (Lasix) 40 Mg Tab, 40 MG PO TUTHSA, TAB 01/01/25 Metoprolol Succinate (Metoprolol Succinate Er) 50 Mg Tab, 1 TAB PO BID, #30 TAB 5 Refills 01/01/25 Sacubitril-Valsartan (Entresto 24-26 mg) 1 Tab Tab, 1 TAB PO DAILY, TAB 01/01/25 Apixaban Base (ELIQUIS) 5 Mg Tab, 5 MG PO DAILY, TAB 01/01/25 Information Source: Patient Mode of Arrival: Ambulatory Severity: Mild, None Timing: Days Duration: Since onset, Days Prehospital treatment: None Medication Refill: For: Other (HIGH BLOOD PRESSURE CHECK ) Past Medical History PAST MEDICAL HISTORY: AFIB, CHF, CVA, HTN Surgical History: Denies all surgeries Family History Family History: Reviewed,noncontributory to illness Social History Smoker: Non-Smoker Alcohol: Denies ETOH Use Drugs: Denies Drug Use Lives In: Home Constitutional: denies: chills, diaphoresis, fatigue, fever, malaise, sweats, weakness, others EENTM: denies: blurred vision, double vision, ear bleeding, ear discharge, ear drainage, ear pain, ear ringing, eye pain, eye redness, hearing loss, mouth pain, mouth swelling, nasal discharge, nose bleeding, nose congestion, nose pain, photophobia, tearing, throat pain, throat swelling, voice changes, others Respiratory: denies: cough, hemoptysis, orthopnea, SOB at rest, shortness of breath, SOB with excertion, stridor, wheezing, others Cardiovascular: denies: chest pain, dizzy spells, diaphoresis, Dyspnea on exertion, edema, irregular heart beat, left arm pain, lightheadedness, palpitations, PND, syncope, others Gastrointestinal: denies: abdomen distended, abdominal pain, blood streaked bowels, constipated, diarrhea, dysphagia, difficulty swallowing, hematemesis, melena, nausea, poor appetite, poor fluid intake, rectal bleeding, rectal pain, vomiting, others Genitourinary: denies: burning, dysuria, flank pain, frequency, hematuria, incontinence, penile discharge, penile sore, pain, testicle pain, testicle swelling, urgency, others Neurological: denies: dizziness, fainting, headache, left sided numbness, left sided weakness, numbness, paresthesia, pre-existing deficit, right sided numbness, right sided weakness, seizure, speech problems, tingling, tremors, weakness, others Musculoskeletal: denies: back pain, gout, joint pain, joint swelling, muscle pain, muscle stiffness, neck pain, others Integumetry: denies: bruises, change in color, change in hair/nails, dryness, laceration, lesions, lumps, rash, wounds, others Allergic/Immunocompromised: denies: Difficulty Healing, Frequent Infections, Hives, Itching, others Hematologic/Lymphatic: denies: anemia, blood clots, easy bleeding, easy bruising, swollen glands, others Endocrine: denies: excessive hunger, excessive sweating, excessive thirst, excessive urination, flushing, intolerance to cold, intolerance to heat, unexplained weight gain, unexplained weight loss, others Psychiatric: denies: anxiety, bipolar disorder, depression, hopeless, panic disorder, schizophrenia, sleepless, suicidal, others All Other Systems: Reviewed and Negative Physical Exam General Appearance: No Apparent Distress, Normal HEENT: Normal ENT Inspection, Pharynx Normal, TMs Normal Neck: Full Range of Motion, Non-Tender, Normal, Normal Inspection Respiratory: Chest Non-Tender, Lungs Clear, No Accessory Muscle Use, No Respiratory Distress, Normal Breath Sounds Cardiovascular: No Edema, No JVD, No Murmur, No Gallop, Normal Peripheral Pulses, Regular Rate/Rhythm Breast Exam: Deferred Gastrointestinal: No Organomegaly, Non Tender, No Pulsatile Mass, Normal Bowel Sounds, Soft Genitalia: Deferred Pelvic: Deferred Rectal: Deferred Extremities: No calf tenderness, Normal capillary refill, Normal inspection, Normal range of motion, Non-tender, No pedal edema Musculoskeletal : Apperance: Normal Neurologic: Alert, 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 Was a procedure done?: No Differential Dx Considerations may include: WELL CHECK, HYPERTENSION, HYPERTENSIVE URGENCY X-Ray, Labs, Meds, VS Vital Signs Date Time Temp Pulse Resp B/P (MAP) Pulse Ox O2 Delivery O2 Flow Rate FiO2 02/11/25 07:20 64 18 98 Room Air 02/11/25 07:20 64 18 122/84 (97) 98 02/11/25 06:00 98.1 62 18 127/100 98 98.1 X-Ray, Labs, Meds, VS Comment EXTERNAL MEDICAL RECORDS REVIEWED: [NONE] INDEPENDENT HISTORIANS: [NONE] SOCIAL DETERMINANTS OF HEALTH: [NONE] LABS ORDERED: NONE REVIEWED AND INTERPRETED RESULTS: NONE IMAGING ORDERED: NONE TREATMENTS ORDERED: NONE PATIENT'S BLOOD PRESSURE WAS CHECKED HERE IN THE ED AND IT MEASURED 122/84. PROCEDURES PERFORMED: NONE CRITICAL CARE TIME: NONE I HAVE DISCUSSED THE PATIENT WITH THE ATTENDING PHYSICIAN DR. SOMERS AND HE AGREES WITH THE PATIENT'S PLAN OF CARE AND DISPOSITION. BASED ON HISTORY OF PRESENT ILLNESS, AND PHYSICAL EXAM, PATIENT WILL BE DISCHARGED HOME. SHARED DECISION MAKING: PATIENT INSTRUCTED TO FOLLOW UP WITH PRIMARY CARE PROVIDER IN 1-2 DAYS FOR RE-EVALUATION OF SYMPTOMS. PATIENT VERBALIZES UNDERSTANDING TO RETURN TO ED FOR NEW OR WORSENING SYMPTOMS OR IF FOLLOW UP WITH PCP CANNOT BE OBTAINED. PATIENT FEELS COMFORTABLE GOING HOME AT THIS TIME. ALL QUESTIONS ADDRESSED AT TIME OF DISCHARGE. Time of 1ST Reevaluation: 07:27 Reevaluation 1ST: Improved Patient Education/Counseling: Diagnosis, Treatment, Need For Follow Up Family Education/Counseling: Diagnosis, Treatment, Need For Follow Up Medical Screening: No EMC Exist At This Time SEPSIS Sepsis Screen Date sepsis recognized/suspect: Feb 11, 2025 Time Sepsis recognized/suspect: 0615 Recent Procedure: No On Antibiotic Therapy: No Respiratory Rate >20: No Heart Rate >90: No Temp<36 C (96.8 F) or >38.3 C: No SBP <90 or MAP <65 mmHG: No New Acute Mental Status Change: No Is the patient on CPAP, BIPAP,: No Vital Signs Date Time Temp Pulse Resp B/P (MAP) Pulse Ox O2 Delivery O2 Flow Rate FiO2 02/11/25 07:20 64 18 98 Room Air 02/11/25 07:20 64 18 122/84 (97) 98 02/11/25 06:00 98.1 62 18 127/100 98 98.1 Departure 1 Departure Time of Disposition: 07:27 Impression: Primary Impression: Well adult health check Additional Impression: History of hypertension Disposition: 01 HOME / SELF CARE / HOMELESS Condition: Stable Additional Instructions: FOLLOW-UP WITH PCP IN 1 TO 2 DAYS. RETURN TO ED FOR ANY NEW OR WORSENING SYMPTOMS. Discharged With: Self Critical Care Note Critical Care Time?: No Stability Stability form required: No I personally scribed for JODIE CUELLAR ([email or web address]) on 02/11/25 at 07:23. Electronically submitted by Alejandro Reid ([email or web address]). JODIE CUELLAR Feb 11, 2025 07:23
== END 2025-02-11 07:25 | disposition home or self-care (01) ==
LOC: ER 05:58
DX: I11.0 Hypertensive heart disease with heart failure (principal); I50.9 Heart failure, unspecified; I48.91 Unspecified atrial fibrillation; Z79.899 Other long term (current) drug therapy; Z86.73 Personal history of transient ischemic attack (TIA), and cerebral infarction without residual deficits; Z98.890 Other specified postprocedural states